=== PATIENT | male | born 1930 | race Two or more races ===

== ENCOUNTER 2016-11-01 09:34 | Inpatient (IN) | payer MEDICARE, MEDICAID ==
[~2016-11-01] VITALS: Ht 167.6 cm; Wt 72.6 kg
[~2016-11-01 09:34] MED LIST: ACET650T10 PO; ALLA266C2 TP; AMLO5TAB4 PO; BISA10SU61 RC; CALC-20 PO; CYAN100T3 PO; CYAN500T4 PO; DONE5TAB8 PO; FERR325T28 PO; LEVO125T PO; LEVO500T15 PO; LISI-607 PO; MAG30ORA PO; MAGN400O6 PO; MEMA5TAB PO; MULT1TAB11; OXCA150T5 PO; PANT40TA2 PO; SIMV20TA2 PO
--- NOTE | 2016-11-01 09:34 | NUR ---
RECIEVED PT TO ED BED 05, BIB RA 86 FROM HOME,FAMILY STS HE C/O CP BUT WAS PAIN FREE UPON EMS ARRIVAL. PT A/OX1-2, H/O DEMENTIA. VSS NAD RR EVEN AND UNLABORED. WILL CONT TO MONITOR
--- NOTE | 2016-11-01 10:30 | NUR ---
Patient is resting comfortably in bed with eyes closed. Easily aroused. VSS
[2016-11-01 10:33] LABS: BASOPHILS # (AUTO) 0.1 /CMM (0.0-0.2); BASOPHILS % (AUTO) 0.7 % (0.0-2.0); EOSINOPHILS # (AUTO) 0.3 /CMM (0.0-0.7); EOSINOPHILS % (AUTO) 3.9 % (0.0-6.0); HEMATOCRIT 35 % (39-51); HEMOGLOBIN 11.4 g/dL (13.5-17.5); LYMPHOCYTES % (AUTO) 13.4 % (20.0-44.0); MEAN CORPUSCULAR HEMOGLOBIN 28 PG (26.0-33.0); MEAN CORPUSCULAR HGB CONC 33 g/dl (31.0-36.0); MEAN CORPUSCULAR VOLUME 86 fL (80-96); MONOCYTES # (AUTO) 0.8 /CMM (0.1-1.30); MONOCYTES % (AUTO) 10.3 % (2.0-12.0); NEUTROPHILS # (AUTO) 5.5 /CMM (1.8-8.9); NEUTROPHILS % (AUTO) 71.7 % (43.0-81.0); PLATELET COUNT (AUTO) 250 /CMM (150-450); RDW COEFFICIENT OF VARIATION 14.3 (11.5-15.0); RED BLOOD CELL COUNT(AUTO) 4.05 MIL/uL (4.5-6.0); WHITE BLOOD COUNT (AUTO) 7.7 K/uL (4.3-11.0)
[2016-11-01 10:44] LABS: CALCIUM, SERUM 8.1 mg/dL (8.5-10.1); CREATININE 1.1 mg/dL (0.6-1.3)
[2016-11-01 10:51] LABS: INR 0.97 (0.87-1.13); PROTHROMBIN TIME 10.2 SECS (9.5-12.7)
[2016-11-01 10:53] LABS: TROPONIN I 0.047 ng/mL (0.00-0.056)
[2016-11-01] MEDS ORDERED: ASPIRIN 325 MG TABLET PO ONE (11:30)
[2016-11-01] MEDS ORDERED: LEVOFLOXACIN 750 MG /D5W 150ML PIGGYBACK IV ONE (11:30)
[2016-11-01] MEDS ORDERED: LEVOFLOXACIN 750 MG /D5W 150ML 150 ML IV ONE (11:37)
[2016-11-01] MEDS ORDERED: IV SET PRIMARY PUMP SET 1 EA INFUS.SET MC ONE ×2 (11:37→17:19)
[2016-11-01] MEDS ORDERED: ASPIRIN 325 MG TABLET ONE (11:37)
[2016-11-01] MEDS ORDERED: MEMA7CAP PO (11:54)
[2016-11-01] MEDS ORDERED: ASPI81TA2 PO (11:54)
[2016-11-01] MEDS ORDERED: CALC-20 PO (11:54)
--- NOTE | 2016-11-01 12:23 | NUR ---
CALLED '[facility] GROUP, DIFFERENTIAL TESTER
--- NOTE | 2016-11-01 12:40 | NUR ---
REPORT GIVEN TO SAPNA DOTSON FOR STEPHANIE TELE [phone]
--- NOTE | 2016-11-01 13:54 | NUR ---
DR.LEE JOHANSEN
--- NOTE | 2016-11-01 14:20 | NUR ---
CARTON STENCILER OPENING RECEIVED PT DENIES SOB, DIFFICULTY BREATHING OR PAIN. PT DAUGHTER AT BEDSIDE. PT A/OX1 CONFUSED AND FORGETFUL THIS IS HIS BASELINE PER DAUGHTER. PT ROOM AIR STABLE. TELE V PACING. PT STATES NO NEEDS SKIN CLEANSED BED BATH LINENS CHANGED, GOWN CHANGED AND PICTURES TAKEN OF SKIN. PT APPEARS STABLE AT THIS TIME. DNR POLST IN CHART.PT LEFT WITH CALL LIGHT IN REACH, BED LOWERED AND LOCKED, RAILS UPX3 FOR SAFETY WITH BED ALARM ON. MD SOMMER AWARE OF ADMISSION
[2016-11-01] MEDS ORDERED: hydrALAZINE HCL 25 MG TABLET PO PRN (15:00)
[2016-11-01] MEDS ORDERED: ALBUTEROL FS 2.5 MG/0.5 ML VIAL.NEB NEB PRN (15:00)
[2016-11-01] MEDS ORDERED: ENOXAPARIN SODIUM 30 MG/0.3 ML DISP.SYRIN SQ SCH (15:00)
[2016-11-01] MEDS ORDERED: IPRATROPIUM NEB FS 0.5 MG/2.5 ML AMPUL.NEB NEB PRN (15:00)
[2016-11-01] MEDS ORDERED: ONDANSETRON HCL/PF 4 MG/2 ML VIAL IV PRN (15:00)
--- NOTE | 2016-11-01 15:57 | NUR ---
MS RN NOTES TALKED TO DR SOMMER PER ORDER NS 75ML/HR X 1 LITER. AND RE ORDER URINALISIS
[2016-11-01] MEDS: ENOXAPARIN SODIUM 40 MG/0.4 ML DISP.SYRIN SQ SCH (16:00)
--- NOTE | 2016-11-01 16:00 | NUR ---
MS RN NOTES PT REFUSING VS AT THIS TIME WILL TRY AGAIN
[2016-11-01 16:05] VITALS: BP 141/83
--- NOTE | 2016-11-01 16:47 | NUR ---
MS RN NOTES PT REFUSING LOVENOX, HE WILL NOT ALLOW ME TO EVEN VISUALIZE HIS STOMACH. PT STILL REFUSING VS. ABLE TO GET SOME
[2016-11-01] MEDS: OXCARBAZEPINE 150 MG TABLET PO SCH (17:00)
[2016-11-01] MEDS ORDERED: ACETAMINOPHEN 325 MG TABLET PO PRN (17:00)
[2016-11-01] MEDS ORDERED: HOME MED MISCELLANEOUS XX SCH (17:00)
[2016-11-01] MEDS ORDERED: IV NS 0.9% 1,000 ML IV ONE (17:00)
[2016-11-01] MEDS ORDERED: MAG HYDROX/AL HYDROX/SIMETH 30 ML UDC PO PRN (17:00)
[2016-11-01] MEDS ORDERED: MAGNESIUM HYDROXIDE 30 ML UDC PO PRN (17:00)
[2016-11-01] MEDS ORDERED: BISACODYL SUPP (10 MG) 10 MG/SUPP.RECT SUPP.RECT RC PRN (17:00)
--- NOTE | 2016-11-01 17:27 | NUR ---
COMBER TENDER NOTES PT REFUSING ALL MEDICATIONS AND IVF. STARTED PULLING AT IVS AND BATTING AWAY RN AND TIRE BUILDER HEAVY SERVICE. PT REFUSING TO EAT WELL. PER DAUGHTER THIS IS NORMAL BEHAVIOR FOR PATIENT AND HE NEEDS TIME TO "COOL OFF".
--- NOTE | 2016-11-01 18:48 | NUR ---
FAX MACHINE REPAIRER NOTES PER DR ROS ALAS OK TO STRAIGHT CATH URINE. PT IS BEING NON COMPLIANT, REFUSING VS, MEDICATIONS, IVF, PULLED OUT IV. ATTEMPTS TO HAVE FREQUENT ROUNDS, CALMING PATIENT DOWN AND PT BECOMING COMBATIVE. MESSAGE LEFT TO BOILER HELPER DR PATTERSON FOR RESTRAINT ORDER UNTIL WE CAN GET SITTER
--- NOTE | 2016-11-01 19:30 | NUR ---
RN OPENING NOTES: RECEIVED REPORT FROM DANNYVAFELIPE RNMAURI. FOUND Pt AWAKE IN BED. Pt IS A/O1/2, CONFUSED. TRYING TO GET OUT OF BED. WAS TOLD BY MAURI THAT THE Pt GETS COMBATIVE AND WAS REFUSING PO MEDS AND VS. Pt PULLED OUT IV AND IS REFUSING A NEW IV INSERTION. MAURI CALLED DR. PATTERSON AND LEFT A MESSAGE TO GET AN ORDER FOR A RESTRAINT AND SITTER. WAITING FOR MD TO CALL BACK. Pt SHOWED NO S/S OF ACUTE DISTRESS OR SOB. NO SIGNS OF PAIN. SAFETY MEASURES IN PLACE. BED LOW, LOCKED, HOB ELEVATED, SIDE RAILS UP, CALL LIGHT AND BEDSIDE TABLE WITHIN REACH. WILL CONTINUE TO MONITOR Pt FOR SAFETY.
--- NOTE | 2016-11-01 19:38 | NUR ---
BASKET FILLER CLOSING PT STABLE AT THIS TIME. BED ALARM ON RAILS UPX3 AND FREQUENT ROUNDING AND SITTING BY STAFF TODAY. AWAITING MD CALL FOR RESTRAINTS ORDER UNTIL WE CAN GET SITTER FOR PATIENT AND TO NOTIFY OF PATIENT REFUSAL OF EVERYTHING. PT REFUSING IV ACCESS, IVF, PO MEDICATIONS AND VS. PT IS WITHOUT COMPLICATIONS AND FREE OF INJURY. PT REFUSED CATH FOR URINE SAMPLE. PT IS AGGITATED AND MESSAGE LEFT FOR MD IF CAN HAVE MEDICATION TO HELP CALM PATIENT DOWN TO ALLOW FOR MEDICAL CARE. PT CARE ENDORSED TO SAPNA CULVER. CALL LIGHT IN REACH, BED LOWERED AND LOCKED, RAILS UPX3 AND BED ALARM ON FOR SAFETY.
[2016-11-01 20:00] VITALS: BP 126/68
[2016-11-01] MEDS: DONEPEZIL 5 MG TABLET PO SCH (21:50)
[2016-11-01] MEDS: FERROUS SULFATE (325 MG) 325 MG/TAB TABLET PO SCH (21:50)
[2016-11-01] MEDS: LISINOPRIL (5MG) 5 MG TABLET PO SCH (21:51)
[2016-11-01] MEDS: SIMVASTATIN 20 MG TABLET PO SCH (21:55)
[2016-11-01 22:00] VITALS: BP 126/68
--- NOTE | 2016-11-01 22:00 | NUR ---
Pt REFUSING TO TAKE HIS 2199 PO MEDS. YELLS TO GET OUT OF THE ROOM AND TRIES TO HIT AND KICK WITH HIS LEGS.
[2016-11-02] VITALS: BP 110/52
--- NOTE | 2016-11-02 01:48 | NUR ---
NEW IV ACCESS ON RFA #22G. FLUSHES WELL. CONTINUING 1X ORDER OF NS @75ML/HR. INFLUENZA SWAB DONE TAKEN FROM RT NARE. CALLED LAB TO DESIGN AGENT.
[2016-11-02 06:35] LABS: BASOPHILS % (AUTO) 0.5 % (0.0-2.0); EOSINOPHILS # (AUTO) 0.4 /CMM (0.0-0.7); EOSINOPHILS % (AUTO) 7.2 % (0.0-6.0); HEMATOCRIT 33 % (39-51); HEMOGLOBIN 10.8 g/dL (13.5-17.5); LYMPHOCYTES % (AUTO) 17.3 % (20.0-44.0); MEAN CORPUSCULAR HEMOGLOBIN 28 PG (26.0-33.0); MEAN CORPUSCULAR HGB CONC 33 g/dl (31.0-36.0); MEAN CORPUSCULAR VOLUME 85 fL (80-96); MONOCYTES # (AUTO) 0.8 /CMM (0.1-1.30); MONOCYTES % (AUTO) 14.8 % (2.0-12.0); NEUTROPHILS # (AUTO) 3.4 /CMM (1.8-8.9); NEUTROPHILS % (AUTO) 60.2 % (43.0-81.0); PLATELET COUNT (AUTO) 264 /CMM (150-450); RDW COEFFICIENT OF VARIATION 15.3 (11.5-15.0); RED BLOOD CELL COUNT(AUTO) 3.88 MIL/uL (4.5-6.0); WHITE BLOOD COUNT (AUTO) 5.6 K/uL (4.3-11.0)
--- NOTE | 2016-11-02 06:45 | NUR ---
RN CLOSING NOTES: NO SIGNIFICANT CHANGES THROUGHOUT THE NIGHT. ALL SAFETY MEASURES IN PLACE. SITTER AT BEDSIDE. WILL ENDORSE TO SAPNA NERI FOR Pt'S STEPHANIE.
[2016-11-02 06:57] LABS: CALCIUM, SERUM 8.3 mg/dL (8.5-10.1); CREATININE 1.1 mg/dL (0.6-1.3); PHOSPHORUS 3.5 mg/dL (2.5-4.9); POTASSIUM 3.9 mmol/L (3.5-5.1)
--- NOTE | 2016-11-02 07:37 | NUR ---
ANALYTICAL CONSULTANT NOTES RECEIVED PATIENT IN BED, AWAKE AND ALERT, ORIENTED X 1, NO S/SX OF PAIN OR DISCOMFORT AT THIS TIME, BREATHING EVEN AND UNLABORED, NO APPARENT DISTRESS NOTED, SAFETY MEASURES IN PLACED, SITTER AT BEDSIDE, CALL LIGHT PLACED WITHIN REACH, WILL CONTINUE TO MONITOR.
[2016-11-02 08:00] VITALS: BP 140/59
[2016-11-02] MEDS: OXCARBAZEPINE 150 MG TABLET PO SCH ×3 (08:16→16:29)
[2016-11-02] MEDS: AMLODIPINE BESYLATE 5 MG TABLET PO SCH (08:16)
[2016-11-02] MEDS: LEVOTHYROXINE SODIUM 125 MCG TABLET PO SCH (08:16)
[2016-11-02] MEDS: MEMANTINE HCL 5 MG TABLET PO SCH (08:16)
[2016-11-02] MEDS: ASPIRIN 81 MG TAB.CHEW PO SCH (08:16)
[2016-11-02] MEDS: PANTOPRAZOLE 40 MG TABLET.DR PO SCH (08:16)
[2016-11-02] MEDS: CYANOCOBALAMIN 500 MCG TABLET PO SCH (08:16)
[2016-11-02 08:49] LABS: THYROID STIMULATING HORMONE 8.13 uIU/mL (0.358-3.74)
--- NOTE | 2016-11-02 09:10 | NUR ---
PATIENT RESIDES AT [facility] [phone]; CONFIRMED BED ON HOLD. PATIENT IS [place] CITIZ[place] SPEAKING, CONFUSED, NEEDS ASSISTANCE WITH ADLS. GREGORIO DAUGHERTY (DAUGHTER) [phone]. NEEDS TRANSPORTATION UPON D/C.
--- NOTE | 2016-11-02 10:00 | NUR ---
RN MS NOTES OBTAINED UA SAMPLE THROUGH STRAIGHT CATH, PATIENT AND DAUGHTER AT BEDSIDE INFORMED AND PROCEDURE EXPLAINED, STERILE TECHNIQUE OBSERVED, PROCEDURE TOLERATED WELL BY THE PATIENT, VITAL SIGNS STABLE, WILL CONTINUE TO MONITOR, PLACED A CALL TO LABORATORY FOR SPECIMEN GENERATION ENGINEERING TECHNOLOGIST.
[2016-11-02 11:27] LABS: APPEARANCE,URINE CLEAR (CLEAR); BILIRUBIN,URINE NEGATIVE (NEGATIVE); BLOOD, URINE 1+ Ery/uL (NEGATIVE); COLOR,URINE YELLOW (YELLOW); KETONES,URINE NEGATIVE (NEGATIVE); LEUKOCYTE ESTERASE ,URINE NEGATIVE (NEGATIVE); NITRITE, URINE NEGATIVE (NEGATIVE); PROTEIN,URINE NEGATIVE (NEGATIVE); UGLUCOSE NEGATIVE (NEGATIVE); UROBILINOGEN,URINE 0.2 EU/dL (0.2)
[2016-11-02 11:38] LABS: ADD URINE CULTURE NO; BACTERIA,URINE None seen /HPF (None Seen); WBC,URINE 0-2 /HPF (0-3)
[2016-11-02 11:39] LABS: SQUAMOUS EPITHELIAL CELL,UR Rare /HPF (None Seen)
[2016-11-02] MEDS ORDERED: SECONDARY IV SET 1 EA INFUS.SET MC ONE (12:15)
[2016-11-02] MEDS: LEVOFLOXACIN 250 MG /D5W 50 ML 250 MG in PREMIX 1 EA IV SCH (12:20)
[2016-11-02] MEDS ORDERED: LEVOFLOXACIN 500 MG /D5W 100ML 500 MG in PREMIX 1 EA IV SCH (15:00)
[2016-11-02 16:00] VITALS: BP 116/62
[2016-11-02] MEDS ORDERED: QUETIAPINE FUMARATE 25 MG TABLET PO PRN (17:00)
--- NOTE | 2016-11-02 19:24 | NUR ---
RN MS CLOSING NOTES PATIENT IN BED, ALERT AND ORIENTED X1, NO EPISODE OF AGITATION DURING THIS SHIFT, REMAINED CALM AND COOPERATIVE WITH CARE, NO S/SX OF PAIN OR DISCOMFORT NOTED, BREATHING EVEN AND UNLABORED, SAFETY MEASURES OBSERVED, SITTER AT BEDSIDE, ALL NEEDS ATTENDED AND MET, CALL LIGHT PLACED WITHIN REACH, VITAL SIGNS STABLE, WILL ENDORSE TO MOTORCYCLE ASSEMBLER FOR STEPHANIE.
[2016-11-02 20:00] VITALS: BP 128/74
[2016-11-02] MEDS: ENOXAPARIN SODIUM 40 MG/0.4 ML DISP.SYRIN SQ SCH (21:41)
[2016-11-02] MEDS: SIMVASTATIN 20 MG TABLET PO SCH (21:41)
[2016-11-02] MEDS: FERROUS SULFATE (325 MG) 325 MG/TAB TABLET PO SCH (21:41)
[2016-11-02] MEDS: DONEPEZIL 5 MG TABLET PO SCH (21:43)
[2016-11-02] MEDS: LISINOPRIL (5MG) 5 MG TABLET PO SCH (22:31)
--- NOTE | 2016-11-03 06:37 | NUR ---
MS RN NOTES AWAKE & RESPONSIVE. NOT IN ANY DISTRESS. NO SOB NOTED. DENIES ANY PAIN OR DISCOMFORT AT THIS TIME. WITH IV-HL PATENT & INTACT. AM CARE DONE. MONITORED ACCORDINGLY. WITH SITTER AT BEDSIDE. CALL LIGHT WITHIN REACH. BED IN LOWEST POSITION. SR UP X 2 FOR SAFETY. WILL ENDORSE TO NEXT SHIFT.
--- NOTE | 2016-11-03 07:05 | NUR ---
RN NOTE: RECEIVED PATIENT WHILE RESTING IN BED, A/OX 1-2. PATIENT BREATHING EVEN AND UNLABORED ON ROOM AIR. NO SOB, NO DISTRESS/DISCOMFORT. SITTER AT BEDSIDE. PATIENT COMFORTABLE, ALL NEEDS ATTENDED TO, SAFETY MEASURES IN PLACE, WILL CONTINUE TO MONITOR.
[2016-11-03] MEDS: LEVOTHYROXINE SODIUM 125 MCG TABLET PO SCH (08:12)
[2016-11-03] MEDS: OXCARBAZEPINE 150 MG TABLET PO SCH ×2 (08:12→12:23)
[2016-11-03] MEDS: PANTOPRAZOLE 40 MG TABLET.DR PO SCH (08:12)
[2016-11-03] MEDS: CYANOCOBALAMIN 500 MCG TABLET PO SCH (08:12)
[2016-11-03] MEDS: MEMANTINE HCL 5 MG TABLET PO SCH (08:12)
[2016-11-03] MEDS: ASPIRIN 81 MG TAB.CHEW PO SCH (08:12)
[2016-11-03] MEDS: AMLODIPINE BESYLATE 5 MG TABLET PO SCH (08:17)
[2016-11-03 08:57] VITALS: BP 125/63
--- NOTE | 2016-11-03 12:00 | NUR ---
MS RN NOTE: PATIENT REFUSED TRILEPTAL AT THIS TIME. MEDICATION WASTED. WILL CONTINUE TO MONITOR.
[2016-11-03] MEDS: LEVOFLOXACIN 250 MG /D5W 50 ML 250 MG in PREMIX 1 EA IV SCH (12:18)
--- NOTE | 2016-11-03 12:30 | NUR ---
MS RN NOTE: PHOTO'S TAKEN OF PATIENTS SKIN ISSUES AND PLACED IN CHART. PATIENT TO BE PREPARED FOR DISCHARGE. WILL CONTINUE TO MONITOR.
--- NOTE | 2016-11-03 15:30 | NUR ---
MS RN NOTE: PATIENT CLEARED FOR DISCHARGE PER DR. ROSAS. PATIENT REMAINS IN STABLE CONDITION, NO COMPLICATIONS NOTED. PATIENT BREATHING EVEN AND UNLABORED ON ROOM AIR. NO DISTRESS. PATIENTS EXIT CARE COMPLETED, ALL FORMS SIGNED, COPIES PLACED IN CHART. PATIENTS HAS NO BELONGINGS. PATIENT PROVIDED WITH DISCHARGE TEACHING REGARDING NEED TO FOLLOW UP WITH PRIMARY MD AND MEDICATION COMPLIANCE. PATIENT NEEDS REINFORCEMENT OF EDUCATION IS CONFUSED TIMES. REPORT GIVEN TO SAPNA FRAZIER AT [facility]. PATIENTS IV REMOVED, ID BAND REMOVED. ALL NEEDS MET, PATIENT DISCHARGE TO [facility] WITH EMT
== END 2016-11-03 15:15 | DRG 69 ==
LOC: ER 09:39 → TELE 13:33 → MED 11-03 13:27
PROVIDERS: ADMIT Internal Medicine; ATTEND Internal Medicine
DX: G45.9 Transient cerebral ischemic attack, unspecified (principal); G93.40 Encephalopathy, unspecified; J15.9 Unspecified bacterial pneumonia; F02.81 Dementia in other diseases classified elsewhere, unspecified severity, with behavioral disturbance; G30.9 Alzheimer's disease, unspecified; K21.9 Gastro-esophageal reflux disease without esophagitis; E03.9 Hypothyroidism, unspecified; E78.5 Hyperlipidemia, unspecified; I12.9 Hypertensive chronic kidney disease with stage 1 through stage 4 chronic kidney disease, or unspecified chronic kidney disease; M19.90 Unspecified osteoarthritis, unspecified site; R07.9 Chest pain, unspecified; F29 Unspecified psychosis not due to a substance or known physiological condition; Z95.0 Presence of cardiac pacemaker; F39 Unspecified mood [affective] disorder; N18.3 Chronic kidney disease, stage 3 (moderate); I48.91 Unspecified atrial fibrillation; Z66 Do not resuscitate; Z86.73 Personal history of transient ischemic attack (TIA), and cerebral infarction without residual deficits
CPT/HCPCS: 36415; 70450-TC; 71010-TC; 80048-TC; 80061-TC; 81000-TC; 82728-TC; 83540-TC; 83735-TC; 84100-TC; 84439-TC; 84443-TC; 84484-TC; 85025-TC; 85730-TC; 87081-TC; 87400; 93307-TC; 97001-TC; A4216; A4606; A6402; J1650; J1956; J7030; Z7610

== ENCOUNTER 2017-06-05 20:10 | Inpatient (IN) | payer MEDICARE, MEDICAID ==
[~2017-06-05] VITALS: Ht 160 cm; Wt 68.2 kg
[~2017-06-05 20:10] MED LIST changes: -ALLA266C2 TP; +ASPI81TA2 PO; -CALC-20 PO; -CYAN500T4 PO; -LEVO500T15 PO; -MEMA5TAB PO; +MEMA7CAP PO; -MULT1TAB11; -PANT40TA2 PO
--- NOTE | 2017-06-05 20:30 | NUR ---
TO BED 6 AN 86 YO MALE BB BLS AMBULANCE FROM [facility]. SENT BY DR. DOAN FOR POSSIBLE PNA. PATIENT IS ALERT, RESPONSIVE, VSS, NONDIAPHORETIC, AFEBRILE. COMFORT MEASURES RENDERED. AWAITING FOR ER MD ALBRECHT.
[2017-06-05] MEDS ORDERED: ALBU2.5V13 NEB (20:35)
[2017-06-05] MEDS ORDERED: PANT20TA2 PO (20:42)
[2017-06-05] MEDS ORDERED: IPRA0.2S49 NEB (20:42)
--- NOTE | 2017-06-05 20:50 | NUR ---
STARTED A SALINE LOCK ON THE RIGHT FOREARM G20, BLOOD DRAWN AND SENT TO LAB.
--- NOTE | 2017-06-05 20:55 | NUR ---
TECH AT BEDSIDE FO EKG.
--- NOTE | 2017-06-05 20:58 | NUR ---
DR MCCARTHY AT BEDSIDE TO EVAL.
[2017-06-05 21:01] LABS: BASOPHILS % (AUTO) 0.5 % (0.0-2.0); EOSINOPHILS % (AUTO) 2.8 % (0.0-6.0); HEMATOCRIT 33 % (39-51); HEMOGLOBIN 10.8 g/dL (13.5-17.5); LYMPHOCYTES % (AUTO) 17.6 % (20.0-44.0); MEAN CORPUSCULAR HEMOGLOBIN 28 PG (26.0-33.0); MEAN CORPUSCULAR HGB CONC 33 g/dl (31.0-36.0); MEAN CORPUSCULAR VOLUME 85 fL (80-96); MONOCYTES % (AUTO) 11.2 % (2.0-12.0); NEUTROPHILS % (AUTO) 67.9 % (43.0-81.0); PLATELET COUNT (AUTO) 305 /CMM (150-450); RDW COEFFICIENT OF VARIATION 13.6 (11.5-15.0); RED BLOOD CELL COUNT(AUTO) 3.83 MIL/uL (4.5-6.0); WHITE BLOOD COUNT (AUTO) 8.5 K/uL (4.3-11.0)
--- NOTE | 2017-06-05 21:01 | NUR ---
SPRING FLOOR SERVICE WORKER AT BEDSIDE FOR CXR.
[2017-06-05 21:02] LABS: EOSINOPHILS # (AUTO) 0.2 /CMM (0.0-0.7); LYMPHOCYTES # (AUTO) 1.5 /CMM (0.8-4.8); MONOCYTES # (AUTO) 0.9 /CMM (0.1-1.30); NEUTROPHILS # (AUTO) 5.9 /CMM (1.8-8.9)
[2017-06-05] MEDS ORDERED: LIDOCAINE 2% JEL UROJET 10 ML MM ONE ×2 (21:05→21:30)
[2017-06-05 21:06] LABS: CARBON DIOXIDE 28 mmol/L (21-32); CHLORIDE 101 mmol/L (98-107); CREATININE 1.1 mg/dL (0.6-1.3); GLUCOSE 117 mg/dL (74-106); POTASSIUM 4.4 mmol/L (3.5-5.1); SODIUM SERUM 134 mmol/L (136-145); UREA NITROGEN, BLOOD 17 mg/dL (7-18)
[2017-06-05 21:14] LABS: TROPONIN I 0.081 ng/mL (0.00-0.056)
--- NOTE | 2017-06-05 21:18 | NUR ---
PER DR FABIO MARIN TO DO STRAIGHT CATH FOR URINE COLLECTION PATIENT IS INCONTINENT, COLLECTED A 10CC YELLOW CLEAR URINE. CALLED LAB FOR GAS PUMP ATTENDANT.
--- NOTE | 2017-06-05 21:19 | NUR ---
FAMIY AT BEDSIDE.
[2017-06-05] MEDS ORDERED: CEFTRIAXONE 1GM BAG (ER ONLY) 50 ML IV ONE ×2 (21:30→21:37)
[2017-06-05] MEDS ORDERED: ASPIRIN 325 MG TABLET PO ONE (21:30)
[2017-06-05] MEDS ORDERED: LEVOFLOXACIN (500MG) 500 MG TABLET PO ONE (21:30)
[2017-06-05] MEDS ORDERED: ENOXAPARIN SODIUM 60 MG/0.6 ML DISP.SYRIN SQ ONE (21:30)
[2017-06-05] MEDS ORDERED: IV NS 0.9% 1,000 ML BAG IV ONE (21:30)
[2017-06-05] MEDS ORDERED: LEVOFLOXACIN (500MG) 500 MG TABLET ONE (21:37)
[2017-06-05] MEDS ORDERED: ASPIRIN 325 MG TABLET ONE (21:37)
[2017-06-05] MEDS ORDERED: ENOXAPARIN SODIUM 80 MG/0.8 ML DISP.SYRIN SQ ONE (21:37)
--- NOTE | 2017-06-05 21:43 | NUR ---
PATIENT WILL BE ADMITTED INTO ROOM 120.
--- NOTE | 2017-06-05 21:54 | NUR ---
medicated patient as ordered by Dr Kent.
[2017-06-05 22:00] VITALS: BP 113/52
[2017-06-05] MEDS ORDERED: VANCOMYCIN 1 GM in IV D5W 250 ML IV ONE (22:00)
[2017-06-05] MEDS ORDERED: AZTREONAM 1 G VIAL IM ONE (22:00)
--- NOTE | 2017-06-05 22:00 | NUR ---
SAPNA VALDEZ INITIAL NOTE PT RECEIVED IN NO ACUTE DISTRESS FROM ER (SAPNA LARIOS). PT IS WITH FAMILY (DAUGHTER). PT IS ON RA BUT SWITCHED TO 2LPM 02 VIA NC. ON TELE WITH V-PACED CONTROLLED 65. NO LINDA, NO GT, NO OSTOMY. RIGHT FA 20G WELL EXISTING LFA 22G THAT WILL BE D/C. COMFORT AND SAFETY MEASURES PLACED. WILL CONTINUE TO MONITOR. Addendum: 06/06/17 at 0115 by MONO JACKSON RN [id number]
--- NOTE | 2017-06-05 22:03 | NUR ---
nina'afshan saucedo per Dr Kent verbal order.
[2017-06-05] MEDS ORDERED: VANCOMYCIN 1 GM VIAL ONE (22:04)
[2017-06-05 22:18] LABS: APPEARANCE,URINE SLIGHTLY CLOUDY (CLEAR); COLOR,URINE YELLOW (YELLOW); PROTEIN,URINE NEGATIVE (NEGATIVE)
[2017-06-05 22:19] LABS: BILIRUBIN,URINE NEGATIVE (NEGATIVE); BLOOD, URINE 3+ Ery/uL (NEGATIVE); KETONES,URINE NEGATIVE (NEGATIVE); LEUKOCYTE ESTERASE ,URINE 1+ (NEGATIVE); NITRITE, URINE NEGATIVE (NEGATIVE); UGLUCOSE NEGATIVE (NEGATIVE); UROBILINOGEN,URINE 0.2 EU/dL (0.2)
--- NOTE | 2017-06-05 22:24 | NUR ---
Transferred to [facility] first floor 118-2 via als protocol, no incident noted. Endorsed to Kalia ALEJO at bedside.
[2017-06-05 22:30] VITALS: BP 113/52
[2017-06-05 22:31] LABS: BACTERIA,URINE None seen /HPF (None Seen); RBC,URINE 21-50 /HPF (0-2)
[2017-06-05 22:32] LABS: SQUAMOUS EPITHELIAL CELL,UR Few /HPF (None Seen)
[2017-06-06] VITALS: BP 129/81
[2017-06-06] MEDS ORDERED: AZTREONAM 1 G VIAL IM SCH
[2017-06-06] MEDS ORDERED: AZTREONAM 1 G VIAL ONE (00:10)
[2017-06-06] MEDS: AZTREONAM 1 G VIAL IV SCH ×2 (00:35→05:00)
[2017-06-06 04:00] VITALS: BP 104/38
[2017-06-06] MEDS ORDERED: AZTREONAM 1 G VIAL IV SCH ×2 (05:00)
--- NOTE | 2017-06-06 05:03 | NUR ---
RN NOTE WILL HOLD 0500 AZACTAM 1G IV. MEDICATION IS TO BE GIVEN Q8H AND LAST DOSE WAS GIVEN AT 0035. WILL ENDORSE TO AM SHIFT TO GIVE MEDICATION AT CORRECT TIME ACCORDING TO ORDER FREQUENCY.
--- NOTE | 2017-06-06 06:21 | NUR ---
CARDIOPULMONARY TECHNICIAN CLOSING NOTE PT REMAINS IN NO ACUTE DISTRESS. PT IS AWAKE BUT UNABLE TO MAKE NEEDS KNOWN. AT TIMES DURING THE SHIFT PT BECAME COMBATIVE. ALL DUE ORDERS CARRIED OUT EXCEPT FOR 0500 IV ATB DUE TO ORDER TIME FRAME NOT MATCHING UP WITH LAST ADMINISTERED MEDICATION. PT IS CLEAN AND COMFORTABLE WITH SAFETY MEASURES IN PLACE. WILL ENDORSE CARE AND F/U INFO TO AM NURSE. Addendum: 06/06/17 at 0636 by MONO JACKSON RN PT WAS PLACED ON 3LPM 02 VIA NC SINCE HE WAS DESATURATING. ON TELE WITH V-PACE 68. LEFT FA IV IS NOT PATENT BUT PT WILL NOT LET ME TAKE IT OUT.
[2017-06-06 07:17] LABS: BASOPHILS % (AUTO) 0.4 % (0.0-2.0); EOSINOPHILS # (AUTO) 0.4 /CMM (0.0-0.7); EOSINOPHILS % (AUTO) 5.5 % (0.0-6.0); HEMATOCRIT 31 % (39-51); HEMOGLOBIN 10.4 g/dL (13.5-17.5); LYMPHOCYTES # (AUTO) 1.4 /CMM (0.8-4.8); LYMPHOCYTES % (AUTO) 20.5 % (20.0-44.0); MEAN CORPUSCULAR HEMOGLOBIN 29 PG (26.0-33.0); MEAN CORPUSCULAR HGB CONC 33 g/dl (31.0-36.0); MEAN CORPUSCULAR VOLUME 86 fL (80-96); MONOCYTES # (AUTO) 0.9 /CMM (0.1-1.30); MONOCYTES % (AUTO) 12.4 % (2.0-12.0); NEUTROPHILS # (AUTO) 4.3 /CMM (1.8-8.9); NEUTROPHILS % (AUTO) 61.2 % (43.0-81.0); PLATELET COUNT (AUTO) 247 /CMM (150-450); RDW COEFFICIENT OF VARIATION 14.6 (11.5-15.0); RED BLOOD CELL COUNT(AUTO) 3.66 MIL/uL (4.5-6.0)
[2017-06-06 07:34] LABS: CARBON DIOXIDE 27 mmol/L (21-32); CHLORIDE 103 mmol/L (98-107); GLUCOSE 83 mg/dL (74-106); POTASSIUM 4.3 mmol/L (3.5-5.1); SODIUM SERUM 137 mmol/L (136-145); UREA NITROGEN, BLOOD 15 mg/dL (7-18)
[2017-06-06 07:48] LABS: CHOLESTEROL 194 mg/dL (<200); HDL CHOLESTEROL 43 mg/dL (40-60); LDL 144 mg/dL (0-99); THYROID STIMULATING HORMONE 1.911 uIU/mL (0.358-3.74); TRIGLYCERIDES 65 mg/dL (30-150)
--- NOTE | 2017-06-06 07:58 | NUR ---
COLORING CHECKER INITIAL NOTE PT IN BED ALERT AND ORIENTED x1-2, EGYPTIAN SPEAKING, ATTEMPTING TO MAKE NEEDS KNOWN . IV FLUIDS STOPPED , PATIENT RECEIVING TKO FLUIDS . PATIENT HAS LEFT AC NON WORKING REFUSING FOR RN TO REMOVE , PATIENT ALSO HAS RIGHT AC WORKING. PT IN NO ACUTE DISTRESS. P PT IS CLEAN AND COMFORTABLE WITH SAFETY MEASURES IN PLACE. CALL LIGHT WITH IN REACH WILL CONTINUE TO FOLLOW THROUGHOUT THE DAY.
[2017-06-06 08:00] VITALS: BP 125/56
[2017-06-06] MEDS ORDERED: FEE PK DOSING 1 MIN EA MC ONE (08:39)
[2017-06-06] MEDS ORDERED: BISACODYL SUPP (10 MG) 10 MG/SUPP.RECT SUPP.RECT RC PRN (09:00)
[2017-06-06] MEDS ORDERED: ACETAMINOPHEN 325 MG TABLET PO PRN (09:00)
[2017-06-06] MEDS ORDERED: MAG HYDROX/AL HYDROX/SIMETH 30 ML UDC PO PRN (09:00)
[2017-06-06] MEDS ORDERED: ALBUTEROL FS 2.5 MG/0.5 ML VIAL.NEB NEB PRN (09:00)
[2017-06-06] MEDS ORDERED: HOME MED MISCELLANEOUS XX SCH (09:00)
[2017-06-06] MEDS ORDERED: MAGNESIUM HYDROXIDE 30 ML UDC PO PRN (09:00)
[2017-06-06] MEDS ORDERED: CYANOCOBALAMIN 100 MCG TABLET PO SCH (09:00)
[2017-06-06] MEDS ORDERED: IPRATROPIUM NEB FS 0.5 MG/2.5 ML AMPUL.NEB NEB PRN (09:00)
[2017-06-06] MEDS: AZTREONAM 1 G in IV NS 0.9% 100 ML IV SCH ×2 (09:08→16:52)
[2017-06-06] MEDS: AMLODIPINE BESYLATE 5 MG TABLET PO SCH (09:09)
[2017-06-06] MEDS: ASPIRIN 81 MG TAB.CHEW PO SCH (09:09)
[2017-06-06] MEDS: FERROUS SULFATE (325 MG) 325 MG/TAB TABLET PO SCH (09:09)
[2017-06-06] MEDS: OXCARBAZEPINE 150 MG TABLET PO SCH ×3 (09:09→16:52)
[2017-06-06] MEDS: LEVOTHYROXINE SODIUM 125 MCG TABLET PO SCH (09:12)
[2017-06-06] MEDS: PANTOPRAZOLE 40 MG TABLET.DR PO SCH ×2 (09:12→09:23)
--- NOTE | 2017-06-06 09:29 | NUR ---
RN NOTE PATIENT IS EXTREMELY CONFUSED UNABLE TO STATE NAME AND AGE WHEN ASKED , UPON TRYING TO ASSESS THE PATIENT IN DETAIL THE PATIENT REFUSED AND BEGAN TO BULL TELL BOX OFF WELL NASAL CANULA . RN ASKED ROMANSH SPEAKING RN TO TRANSLATE MEDICATION -
[2017-06-06 10:16] LABS: TROPONIN I 0.092 ng/mL (0.00-0.056)
[2017-06-06 10:26] LABS: PHOSPHORUS 3.6 mg/dL (2.5-4.9)
[2017-06-06 10:27] LABS: MAGNESIUM 1.8 mg/dL (1.8-2.4)
[2017-06-06] MEDS: VANCOMYCIN 0.75 GM in IV D5W 250 ML IV SCH ×2 (11:52→22:14)
--- NOTE | 2017-06-06 12:44 | NUR ---
WOUND CARE CONSULT: PT PRESENTS WITH VERY RED AREA TO PENIS. RECOMMENDATIONS MADE AND DISCUSSED WITH NURSING STAFF. PT IS INCONTINENT. MACO SCORE IS 12. ISOFLEX LOW AIRLOSS BED TO BE PLACED WHEN AVAILABLE. PT TO BE TURNED AND REPOSITIONED EVERY 2 HRS PT CONDITION PERMITS, HEELS FLOATED. ALL SKIN PROTECTION MEASURES IN PLACE. WILL SEE PRN. TRONCOSO IN AGREEMENT WITH PLAN OF CARE. Addendum: 06/06/17 at 1246 by AGGIE CROWELL WNDNU Amended: Links added.
[2017-06-06] MEDS: CLOTRIMAZOLE 1% 15 GM TUBE TP SCH ×2 (13:00→16:53)
[2017-06-06] MEDS ORDERED: Z GUARD REMEDY 2 OZ OINT TP PRN (13:00)
[2017-06-06] MEDS: Z GUARD REMEDY 2 OZ OINT TP SCH (13:00)
[2017-06-06] MEDS: MEMANTINE HCL 5 MG TABLET PO SCH (15:00)
--- NOTE | 2017-06-06 15:54 | NUR ---
RN NOTE PATIENT REFUSED MEDS AND WILLIAM CARE X 2 ATTEMPTS TO APPLY MEDICATION LATIEN ON PENIS. AND ALSO Z- GUARD TO REDDENED AREAS. PATIENT HAS ALSO REFUSED PM MEDICATION RN WILL CONTINUE TO ATTEMPT ADMINISTRATION FOR THE REMINDER OF THE SHIFT
[2017-06-06 16:00] VITALS: BP 131/59
--- NOTE | 2017-06-06 19:04 | NUR ---
RN CLOSING NOTE PATIENT IS FREE OF INJURY , SAFETY MEASURES IN PLACE, PATIENT KEEP CLEAN AND DRY REORIENTED AND REPOSITIONED PER PROTOCOL , PATIENT VITALS ASSESSED. PATIENT HAS NO COMPLAINTS AT THIS TIME NEEDS ATTENDED, CALL LIGHT WITHIN REACH, FLUID HYDRATION MONITORED AND WNL NO SOB NOTED NO DISCOMFORT. RN WILL CONTINUE TO FOLLOW WOUND TREATMENT ORDERS FOLLOWED WILL ENDORSE CONTINUED CARE TO PM RN
[2017-06-06 19:45] VITALS: BP 131/59
--- NOTE | 2017-06-06 20:00 | NUR ---
MS1/RN RECEIVE PATIENT AWAKE, ALERT, NOT ANSWERING TO MY QUESTIONS, APPEAR COMFORTABLE, NO S/S OF PAIN, NO DISTRESS NOTED, CALL LIGHT IN REACH. FALL PRECAUTION. WILL MONITOR.
[2017-06-06] MEDS: DONEPEZIL 5 MG TABLET PO SCH (22:14)
[2017-06-06] MEDS: SIMVASTATIN 20 MG TABLET PO SCH (22:14)
[2017-06-06] MEDS: LISINOPRIL (5MG) 5 MG TABLET PO SCH (22:15)
--- NOTE | 2017-06-06 23:02 | NUR ---
MS1/RN PATIENT APPEAR SLEEPING, AROUSABLE, NO CHANGE IN CONDITION. ENDORSED TO NEXT RN FOR CONTINUITY OF CARE.
--- NOTE | 2017-06-06 23:35 | NUR ---
RN OPEN NOTES RECEIVED PATIENT RESTING IN BED, EASILY AROUSABLE TO NAME. A/O X1. NO SIGNS OF DISTRESS OR DISCOMFORT. BREATHING EVEN AND UNLABORED. IV ACCESS IN RFA PATENT AND INTACT, NO SIGNS OF REDNESS OR INFILTRATION. BED IN LOW LOCKED POSITION WITH SIDE RAILS X2. CALL LIGHT WITHIN REACH. WILL CONTINUE TO MONITOR.
[2017-06-07] MEDS: AZTREONAM 1 G in IV NS 0.9% 100 ML IV SCH ×3 (00:05→17:40)
[2017-06-07 04:00] VITALS: BP 121/53
--- NOTE | 2017-06-07 06:54 | NUR ---
RN CLOSING NOTES PATIENT RESTING IN BED, EASILY AROUSABLE TO NAME. A/O X1. NO SIGNS OF DISTRESS OR DISCOMFORT. BREATHING EVEN AND UNLABORED. IV ACCESS IN RFA PATENT AND INTACT, NO SIGNS OF REDNESS OR INFILTRATION. ALL NEEDS MET. NO SIGNIFICANT CHANGES THROUGH THE NIGHT. REPOSITIONED Q2H. BED IN LOW LOCKED POSITION WITH SIDE RAILS X2. CALL LIGHT WITHIN REACH. WILL ENDORSE TO AM SHIFT FOR STEPHANIE.
[2017-06-07 07:07] LABS: BASOPHILS % (AUTO) 0.4 % (0.0-2.0); EOSINOPHILS # (AUTO) 0.4 /CMM (0.0-0.7); EOSINOPHILS % (AUTO) 4.8 % (0.0-6.0); HEMATOCRIT 33 % (39-51); HEMOGLOBIN 10.9 g/dL (13.5-17.5); LYMPHOCYTES # (AUTO) 1.2 /CMM (0.8-4.8); LYMPHOCYTES % (AUTO) 15.6 % (20.0-44.0); MEAN CORPUSCULAR HEMOGLOBIN 28 PG (26.0-33.0); MEAN CORPUSCULAR HGB CONC 33 g/dl (31.0-36.0); MEAN CORPUSCULAR VOLUME 86 fL (80-96); MONOCYTES % (AUTO) 12.3 % (2.0-12.0); NEUTROPHILS # (AUTO) 5.3 /CMM (1.8-8.9); NEUTROPHILS % (AUTO) 66.9 % (43.0-81.0); PLATELET COUNT (AUTO) 271 /CMM (150-450); RDW COEFFICIENT OF VARIATION 14.6 (11.5-15.0); RED BLOOD CELL COUNT(AUTO) 3.86 MIL/uL (4.5-6.0); WHITE BLOOD COUNT (AUTO) 7.9 K/uL (4.3-11.0)
[2017-06-07 07:11] VITALS: BP 121/53
--- NOTE | 2017-06-07 07:15 | NUR ---
RN INITIAL NOTE PATIENT RECEIVED IN BED, RESTING COMFORTABLY. ALERT, CONFUSED. MUMBLES WORDS, PRIMARILY DIVEHI SPEAKING. NO S/S OF PAIN OR DISCOMFORT. DENIES PAIN AT THIS TIME. RESPIRATIONS ARE EVEN AND UNLABORED. NO S/S OF RESPIRATORY DISTRESS OR SOB. SATING WELL ON ROOM AIR. IV SITE FLUSHED, PATENT. SKIN IS WARM AND DRY TO TOUCH. SAFETY PRECAUTIONS IMPLEMENTED. BED IN LOCKED, LOW POSITION WITH TWO SIDE RAILS UP. CALL LIGHT AND BELONGINGS WITHIN EASY REACH. WILL MONITOR CLOSELY.
[2017-06-07 07:24] VITALS: BP 121/53
--- NOTE | 2017-06-07 07:30 | NUR ---
RN NOTES RECEIVED PATIENT IN BED ALERT, AWAKE, ORIENTED X2 WITH BREATHING NORMAL, EVEN AND UNLABORED. NO SOB NOTED. ON ROOM AIR, SATURATING WELL. NO ACUTE DISTRESS NOTED. RFA 20G IS PATENT AND INTACT, NO INFILTRATION NOTED. KEPT CLEAN, DRY AND COMFORTABLE. ALL NEEDS ATTENDED. SAFETY MEASURE OBSERVED. CALL LIGHT WITH IN REACH. WILL CONT TO MONITOR.
[2017-06-07 07:39] LABS: CALCIUM, SERUM 8.2 mg/dL (8.5-10.1); CARBON DIOXIDE 25 mmol/L (21-32); CHLORIDE 102 mmol/L (98-107); GLUCOSE 83 mg/dL (74-106); MAGNESIUM 1.9 mg/dL (1.8-2.4); PHOSPHORUS 3.9 mg/dL (2.5-4.9); SODIUM SERUM 137 mmol/L (136-145); UREA NITROGEN, BLOOD 13 mg/dL (7-18)
[2017-06-07 07:57] LABS: ALANINE AMINOTRANSFERASE 18 U/L (12-78); ALBUMIN 2.9 g/dL (3.4-5.0); ALKALINE PHOSPHATASE 97 U/L (46-116); ASPARTATE AMINOTRANSFERASE 17 U/L (15-37); BILIRUBIN,TOTAL 0.2 mg/dL (0.2-1.0); TOTAL PROTEIN, SERUM 6.9 g/dL (6.4-8.2)
[2017-06-07 08:00] VITALS: BP 135/48
[2017-06-07] MEDS: ASPIRIN 81 MG TAB.CHEW PO SCH (08:27)
[2017-06-07] MEDS: MEMANTINE HCL 5 MG TABLET PO SCH (08:28)
[2017-06-07] MEDS: LEVOTHYROXINE SODIUM 125 MCG TABLET PO SCH (08:28)
[2017-06-07] MEDS: OXCARBAZEPINE 150 MG TABLET PO SCH ×3 (08:28→17:36)
[2017-06-07] MEDS: FERROUS SULFATE (325 MG) 325 MG/TAB TABLET PO SCH (08:28)
[2017-06-07] MEDS: Z GUARD REMEDY 2 OZ OINT TP SCH (08:29)
[2017-06-07] MEDS: AMLODIPINE BESYLATE 5 MG TABLET PO SCH (08:29)
[2017-06-07] MEDS: CLOTRIMAZOLE 1% 15 GM TUBE TP SCH ×3 (08:30→17:37)
[2017-06-07 08:56] LABS: FERRITIN 87 ng/mL (8-388)
[2017-06-07] MEDS: VANCOMYCIN 0.75 GM in IV D5W 250 ML IV SCH ×2 (10:07→22:27)
[2017-06-07] MEDS: CYANOCOBALAMIN 500 MCG TABLET PO SCH (10:07)
--- NOTE | 2017-06-07 19:10 | NUR ---
RN MS OPENING NOTES RECEIVED REPORT FROM AM RN. PATIENT A/A/O X1-2 W/ SOME CONFUSION. BREATHING EVEN AND UNLABORED, NO RESPIRATORY DISTRESS NOTED, ON ROOM AIR. PULSES PRESENT. SKIN WARM TO TOUCH. RIGHT FOREARM IV #20 CDI, SALINE LOCK. DENIES ANY PAIN OR DISCOMFORT. SAFETY MEASURES IN PLACE W/ SIDE RAILS UP, BED LOCKED AND IN LOWEST POSITION, BED ALARM ON, AND CALL LIGHT WITHIN REACH. WILL CONTINUE TO MONITOR.
--- NOTE | 2017-06-07 19:15 | NUR ---
RN NOTES PATIENT ENDORSED TO NEXT SHIFT IN STABLE CONDITION FOR CONTINUITY OF CARE.
[2017-06-07 20:00] VITALS: BP 115/50
[2017-06-07 20:02] VITALS: BP 115/50
[2017-06-07] MEDS: LISINOPRIL (5MG) 5 MG TABLET PO SCH (22:27)
[2017-06-07] MEDS: SIMVASTATIN 20 MG TABLET PO SCH (22:27)
[2017-06-07] MEDS: DONEPEZIL 5 MG TABLET PO SCH (22:28)
[2017-06-08] MEDS: AZTREONAM 1 G in IV NS 0.9% 100 ML IV SCH ×2 (01:33→08:51)
[2017-06-08 04:00] VITALS: BP 125/55
[2017-06-08 04:03] VITALS: BP 125/55
[2017-06-08 06:32] LABS: CALCIUM, SERUM 8.4 mg/dL (8.5-10.1); CARBON DIOXIDE 28 mmol/L (21-32); CHLORIDE 101 mmol/L (98-107); GLUCOSE 86 mg/dL (74-106); POTASSIUM 4.3 mmol/L (3.5-5.1); SODIUM SERUM 135 mmol/L (136-145); UREA NITROGEN, BLOOD 17 mg/dL (7-18)
--- NOTE | 2017-06-08 07:10 | NUR ---
RN MS OPENING NOTES RECEIVED PT RESTING COMFORTABLY IN BED. A&OX1. ON RA, RESPIRATIONS EVEN AND UNLABORED WITH NO SOB NOTED. SKIN WARM TO TOUCH. RIGHT FOREARM IV #20 CDI, SALINE LOCK. BED LOW, LOCKED WITH CALL LIGHT WITHIN REACH. WILL CONT TO MONITOR.
--- NOTE | 2017-06-08 07:11 | NUR ---
RN MS CLOSING NOTES PATIENT SLEEPING IN BED. NO ACUTE RESPIRATORY DISTRESS THROUGHOUT SHIFT, REMAINED ON ROOM AIR. NO SIGNIFICANT CHANGES DURING SHIFT. ALL DUE MEDS GIVEN AND TOLERATED. SAFETY MEASURES IN PLACE. WILL ENDORSE STEPHANIE TO AM RN.
[2017-06-08 08:00] VITALS: BP_SYST 125; BP_SYST 127; BP_DIAS 50
[2017-06-08] MEDS: CYANOCOBALAMIN 500 MCG TABLET PO SCH (08:51)
[2017-06-08] MEDS: LEVOTHYROXINE SODIUM 125 MCG TABLET PO SCH (08:51)
[2017-06-08] MEDS: AMLODIPINE BESYLATE 5 MG TABLET PO SCH (08:52)
[2017-06-08] MEDS: PANTOPRAZOLE 40 MG TABLET.DR PO SCH (08:52)
[2017-06-08] MEDS: OXCARBAZEPINE 150 MG TABLET PO SCH ×2 (08:52→12:00)
[2017-06-08] MEDS: FERROUS SULFATE (325 MG) 325 MG/TAB TABLET PO SCH (08:52)
[2017-06-08] MEDS: MEMANTINE HCL 5 MG TABLET PO SCH (08:52)
[2017-06-08] MEDS: ASPIRIN 81 MG TAB.CHEW PO SCH (08:52)
[2017-06-08] MEDS: Z GUARD REMEDY 2 OZ OINT TP SCH (11:31)
[2017-06-08] MEDS: CLOTRIMAZOLE 1% 15 GM TUBE TP SCH ×2 (11:32→12:00)
[2017-06-08] MEDS ORDERED: AZTR1FRO IV (12:58)
[2017-06-08] MEDS ORDERED: VANC750P4 IV (12:58)
[2017-06-08 16:00] VITALS: BP 98/48
[2017-06-08] MEDS ORDERED: VANCOMYCIN 0.75 GM in IV D5W 250 ML IV SCH (16:00)
[2017-06-08] MEDS ORDERED: VANCOMYCIN 1 GM in IV D5W 250 ML IV SCH (16:00)
--- NOTE | 2017-06-08 17:30 | NUR ---
MS RN NOTE: PATIENT D/C TO [facility]. REPORT GIVEN TO INTAKE NURSE CHARLIE. PATIENT LEFT IN STABLE CONDITION. A&OX1, VS: 99.0 TEMP, 60 HR, 17 RR, 97% O2 SAT, 108/47 BP, DENIED PAIN. REFUSED PICTURE. UNABLE TO SIGN D/C FORMS DUE TO CONFUSION. ORDERS CARRIED OUT. D/C PACKAGE GIVEN TO EMT FOR TRANSPORTATION. PATIENT LEFT VIA GURNEY WITH 2 EMT AT 1700
== END 2017-06-08 17:30 | DRG 280 ==
LOC: ER 20:11 → TELE1 21:50 → MEDSG1 06-06 09:47
PROVIDERS: ADMIT Internal Medicine; ATTEND Internal Medicine
DX: I21.4 Non-ST elevation (NSTEMI) myocardial infarction (principal); G92 Toxic encephalopathy; J18.9 Pneumonia, unspecified organism; N39.0 Urinary tract infection, site not specified; G30.9 Alzheimer's disease, unspecified; D50.0 Iron deficiency anemia secondary to blood loss (chronic); I50.30 Unspecified diastolic (congestive) heart failure; F02.80 Dementia in other diseases classified elsewhere, unspecified severity, without behavioral disturbance, psychotic disturbance, mood disturbance, and anxiety; J98.11 Atelectasis; Z88.0 Allergy status to penicillin; Z88.8 Allergy status to other drugs, medicaments and biological substances; Z86.73 Personal history of transient ischemic attack (TIA), and cerebral infarction without residual deficits; Z79.899 Other long term (current) drug therapy; Z79.82 Long term (current) use of aspirin; K21.9 Gastro-esophageal reflux disease without esophagitis; I25.10 Atherosclerotic heart disease of native coronary artery without angina pectoris; E78.5 Hyperlipidemia, unspecified; E66.01 Morbid (severe) obesity due to excess calories; E03.9 Hypothyroidism, unspecified; D64.9 Anemia, unspecified; M19.90 Unspecified osteoarthritis, unspecified site; F29 Unspecified psychosis not due to a substance or known physiological condition; Z95.0 Presence of cardiac pacemaker
CPT/HCPCS: 36415; 71010-TC; 80048-TC; 80053-TC; 80061-TC; 80202-TC; 81000-TC; 82728-TC; 83540-TC; 83605-TC; 83735-TC; 84100-TC; 84443-TC; 84484-TC; 85025-TC; 87040-TC; 87081-TC; 87086-TC; A4349; A4606; J0696; J1650; J3370; J3490; J7030; J7050; J7060; Z7610

== ENCOUNTER 2018-01-31 16:49 | Inpatient (IN) | payer MEDICARE, MEDICAID ==
[2018-01-31] VITALS: BP 125/67
[~2018-01-31] VITALS: Ht 172.7 cm; Wt 67.6 kg
[~2018-01-31 16:49] MED LIST changes: +ALBU2.5V13 NEB; +ASPI-1169 PO; -ASPI81TA2 PO; +AZTR1FRO IV; +IPRA0.2S49 NEB; +PANT20TA2 PO; +VANC750P7 IV
--- NOTE | 2018-01-31 17:00 | NUR ---
[id number] FROM [facility]: COUGH, FEVER, MORE ALTERED. RR IS EVEN AND SLIGHTLY LABORED. SKIN IS HOT TO TOUCH. PLACED ON THE MONITOR. WILL CONTINUOUSLY MONITOR THE PATIENT. AWAITING MD FOR EVAL.
[2018-01-31 17:39] LABS: BASOPHILS % (AUTO) 0.1 % (0.0-2.0); EOSINOPHILS % (AUTO) 0.9 % (0.0-6.0); HEMATOCRIT 35 % (39-51); HEMOGLOBIN 11.7 g/dL (13.5-17.5); LYMPHOCYTES # (AUTO) 0.8 /CMM (0.8-4.8); LYMPHOCYTES % (AUTO) 4.1 % (20.0-44.0); MEAN CORPUSCULAR HGB CONC 33 g/dl (31.0-36.0); MEAN CORPUSCULAR VOLUME 85 fL (80-96); MONOCYTES # (AUTO) 1.2 /CMM (0.1-1.30); MONOCYTES % (AUTO) 6.6 % (2.0-12.0); NEUTROPHILS # (AUTO) 16.2 /CMM (1.8-8.9); NEUTROPHILS % (AUTO) 88.3 % (43.0-81.0); PLATELET COUNT (AUTO) 341 /CMM (150-450); RDW COEFFICIENT OF VARIATION 14.4 (11.5-15.0); WHITE BLOOD COUNT (AUTO) 18.4 K/uL (4.3-11.0)
[2018-01-31 17:42] LABS: ABG BASE EXCESS -0.1 mmol/L; ABG OXYGEN SATURATION 94.7 % (92.0-98.5); ABG PCO2 35.8 mmHg (35.0-45.0); ABG PH 7.439 (7.350-7.450); ABG PO2 72.3 mmHg (75.0-100.0); AaDO2 142.9 mmHg; COHb 0.7 % (0.5-1.5); MetHb 0.3 % (0.0-1.5); O2Hb 93.8 % (94.0-97.0); SITE, ABG Left Radial; VENT MODE, BG 4LNC
[2018-01-31 17:51] LABS: CALCIUM, SERUM 8.8 mg/dL (8.5-10.1); CARBON DIOXIDE 27 mmol/L (21-32); CHLORIDE 104 mmol/L (98-107); CREATININE 1.2 mg/dL (0.6-1.3); GLUCOSE 128 mg/dL (74-106); SODIUM SERUM 138 mmol/L (136-145); UREA NITROGEN, BLOOD 19 mg/dL (7-18)
[2018-01-31 17:57] LABS: ALANINE AMINOTRANSFERASE 26 U/L (12-78); ALBUMIN 3.3 g/dL (3.4-5.0); ALKALINE PHOSPHATASE 97 U/L (46-116); ASPARTATE AMINOTRANSFERASE 24 U/L (15-37); BILIRUBIN,DIRECT 0.1 mg/dL (0.0-0.2); BILIRUBIN,TOTAL 0.3 mg/dL (0.2-1.0); TOTAL PROTEIN, SERUM 8.2 g/dL (6.4-8.2)
[2018-01-31 17:58] LABS: TROPONIN I 0.062 ng/mL (0.00-0.056)
[2018-01-31 18:00] LABS: INR 0.93 (0.85-1.15)
[2018-01-31] MEDS ORDERED: ACETAMINOPHEN 650 MG/SUPP.RECT RC ONE (18:00)
--- NOTE | 2018-01-31 18:37 | NUR ---
CALLED NURSING SUP. FOR TELE BED
[2018-01-31] MEDS ORDERED: ASPIRIN 325 MG TABLET ONE (18:47)
[2018-01-31 18:50] LABS: APPEARANCE,URINE SL CLOUDY (CLEAR); BILIRUBIN,URINE NEGATIVE (NEGATIVE); BLOOD, URINE 3+ Ery/uL (NEGATIVE); COLOR,URINE YELLOW (YELLOW); KETONES,URINE TRACE (NEGATIVE); LEUKOCYTE ESTERASE ,URINE TRACE (NEGATIVE); NITRITE, URINE NEGATIVE (NEGATIVE); PH,URINE 5.5 (5.0-8.0); PROTEIN,URINE TRACE mg/dl (NEGATIVE); UGLUCOSE NEGATIVE (NEGATIVE); UROBILINOGEN,URINE 0.2 EU/dL (0.2)
[2018-01-31] MEDS ORDERED: IPRA0.2S9 IH (18:58)
[2018-01-31] MEDS ORDERED: DOCU100C36 PO (18:58)
[2018-01-31] MEDS ORDERED: VANCOMYCIN 1 GM in IV D5W 250 ML IV ONE (19:00)
[2018-01-31] MEDS ORDERED: MEROPENEM 500 MG in IV NS 0.9% 50 ML IV ONE (19:00)
[2018-01-31] MEDS ORDERED: ASPIRIN 325 MG TABLET PO ONE (19:00)
[2018-01-31 19:09] LABS: BACTERIA,URINE 2+ /HPF (None Seen); RBC,URINE 21-50 /HPF (0-2); SQUAMOUS EPITHELIAL CELL,UR None Seen /HPF (None Seen)
--- NOTE | 2018-01-31 19:10 | NUR ---
rEPORT GIVEN TO SAPNA VILLAREAL FOR STEPHANIE.
[2018-01-31 19:13] LABS: BAND % (MANUAL) 4 % (0.0-5.0); LYMPHOCYTES % (MANUAL) 2 % (16-48); MONOCYTES % (MANUAL) 6 % (0-11.0); NEUTROPHILS % (MANUAL) 88 (42-76)
[2018-01-31 20:00] VITALS: BP_SYST 121; BP_SYST 127; BP_DIAS 63; BP_DIAS 68
--- NOTE | 2018-01-31 20:04 | NUR ---
REPORT GIVEN TO EDDIE IN [place]
[2018-01-31 20:10] VITALS: BP 127/63
--- NOTE | 2018-01-31 20:10 | NUR ---
TELE-1/ALARM ADJUSTER RECEIVED PT ACCOMPANIED BY ER STAFF. PT TRANSFERRED TO BED 118-1. ADMISSION ASSESSMENT DONE. SKIN ASSESSMENT DONE PICTURES TAKEN AND PLACED IN CHART. VSS. PT AND FAMILY UPDATED ON PLAN OF CARE. IV LINES FLUSHED. PT AND FAMILY EDUCATED PRESSURIZER LIGHT AND ROOM ORIENTATION. BED IN LOWEST LOCKED POSITION. SIDE RAILS UP x3. CALL LIGHT IN REACH. WILL CONTINUE TO MONITOR CLOSELY.
--- NOTE | 2018-01-31 21:00 | NUR ---
TELE-1/EXPLOSIVE OPERATOR BOMB DR. CASTAÑEDA CALLED ADMITTING ORDERS RECEIVED. WILL CONTINUE TO MONITOR CLOSELY.
[2018-01-31] MEDS: LEVOFLOXACIN 500 MG /D5W 100ML 500 MG in PREMIX 1 EA IV SCH (21:55)
[2018-02-01] VITALS: BP 125/67
[2018-02-01 04:00] VITALS: BP 131/78
[2018-02-01] MEDS ORDERED: ALBUTEROL FS 2.5 MG/3 ML VIAL.NEB NEB PRN ×2 (05:00→05:28)
[2018-02-01] MEDS ORDERED: IPRATROPIUM NEB FS 0.5 MG/2.5 ML AMPUL.NEB NEB PRN ×2 (05:00→05:30)
--- NOTE | 2018-02-01 07:10 | NUR ---
REPORT RECEIVED AT THE BEDSIDE. PATIENT IS SLEEPING AT THIS TIME. DOES NOT APPEAR TO BE IN PAIN, NO FACIAL GRIMACE NOTED. HEART RATE SR IN THE 70 WITH V PACING. BED IN A LOW POSITION, CALL LIGHT WITHIN PATIENT REACH. WILL MONITOR.
[2018-02-01] MEDS ORDERED: MEMA5TAB15 PO (07:31)
--- NOTE | 2018-02-01 07:52 | NUR ---
FAXED PT CONTINUED MED LIST TO PHARMACY. PER NIGHT NURSEJESIKA. FAXED LIST AT CHANGE OF SHIFT YESTERDAY, BUT NOT DONE.
[2018-02-01 08:00] VITALS: BP 137/74
[2018-02-01 08:13] LABS: CALCIUM, SERUM 8.4 mg/dL (8.5-10.1); CARBON DIOXIDE 28 mmol/L (21-32); CHLORIDE 108 mmol/L (98-107); CREATININE 1.1 mg/dL (0.6-1.3); GLUCOSE 90 mg/dL (74-106); POTASSIUM 3.7 mmol/L (3.5-5.1); SODIUM SERUM 142 mmol/L (136-145); UREA NITROGEN, BLOOD 16 mg/dL (7-18)
[2018-02-01 08:18] LABS: BASOPHILS # (AUTO) 0.1 /CMM (0.0-0.2); BASOPHILS % (AUTO) 0.4 % (0.0-2.0); EOSINOPHILS % (AUTO) 0.6 % (0.0-6.0); HEMATOCRIT 32 % (39-51); HEMOGLOBIN 10.6 g/dL (13.5-17.5); LYMPHOCYTES # (AUTO) 1.7 /CMM (0.8-4.8); LYMPHOCYTES % (AUTO) 10.7 % (20.0-44.0); MEAN CORPUSCULAR HGB CONC 33 g/dl (31.0-36.0); MEAN CORPUSCULAR VOLUME 86 fL (80-96); MONOCYTES # (AUTO) 1.4 /CMM (0.1-1.30); NEUTROPHILS # (AUTO) 12.6 /CMM (1.8-8.9); NEUTROPHILS % (AUTO) 79.3 % (43.0-81.0); PLATELET COUNT (AUTO) 288 /CMM (150-450); RDW COEFFICIENT OF VARIATION 15.7 (11.5-15.0); RED BLOOD CELL COUNT(AUTO) 3.73 MIL/uL (4.5-6.0); WHITE BLOOD COUNT (AUTO) 15.9 K/uL (4.3-11.0)
[2018-02-01] MEDS ORDERED: ALBUTEROL FS 2.5 MG/0.5 ML VIAL.NEB NEB PRN (09:00)
[2018-02-01] MEDS ORDERED: MAGNESIUM HYDROXIDE 30 ML UDC PO PRN (09:00)
[2018-02-01] MEDS ORDERED: BISACODYL SUPP (10 MG) 10 MG/SUPP.RECT SUPP.RECT RC PRN (09:00)
[2018-02-01] MEDS ORDERED: IPRATROPIUM NEB FS 0.5 MG/2.5 ML AMPUL.NEB IH PRN (09:00)
[2018-02-01] MEDS: ASPIRIN 81 MG TAB.CHEW PO SCH ×2 (09:00→09:31)
[2018-02-01] MEDS ORDERED: MAG HYDROX/AL HYDROX/SIMETH 30 ML UDC PO PRN (09:00)
[2018-02-01] MEDS: LEVOTHYROXINE SODIUM 125 MCG TABLET PO SCH ×2 (09:00→09:31)
[2018-02-01] MEDS: DOCUSATE SODIUM 100 MG CAPSULE PO SCH ×3 (09:00→16:20)
[2018-02-01] MEDS: OXCARBAZEPINE 150 MG TABLET PO SCH ×4 (09:00→16:20)
[2018-02-01] MEDS: FERROUS SULFATE (325 MG) 325 MG/TAB TABLET PO SCH ×2 (09:00→09:31)
[2018-02-01] MEDS: AMLODIPINE BESYLATE 5 MG TABLET PO SCH ×2 (09:00→09:31)
[2018-02-01] MEDS: PANTOPRAZOLE 40 MG/PACK PACK GT SCH ×2 (09:00→09:31)
[2018-02-01] MEDS: MEMANTINE HCL 5 MG TABLET PO SCH ×2 (09:00→09:31)
[2018-02-01] MEDS ORDERED: ACETAMINOPHEN 325 MG TABLET PO PRN (09:00)
[2018-02-01] MEDS ORDERED: Z GUARD REMEDY 2 OZ OINT TP PRN (09:00)
[2018-02-01] MEDS: CYANOCOBALAMIN 500 MCG TABLET PO SCH ×2 (09:30→09:31)
--- NOTE | 2018-02-01 10:27 | NUR ---
PT REFUSING ALL MORNING MEDS. WHEN ATTEMPTED TO GIVE THEM TO HIM CRUSHED IN APPLESAUCE, HE SPIT THEM OUT. USED HELP OF A WOLOF SPEAKING MANAGER SQL TO TRANSLATE FOR THE PATIENT AND EXPLAIN THE MEDICATIONS, BUT PATIENT IS TOO CONFUSED TO UNDERSTAND. WILL INFORM MD.
--- NOTE | 2018-02-01 11:34 | NUR ---
DAUGHTER GREGORIO IS AT BEDSIDE. DAUGHTER ABLE TO GET PATIENT TO TAKE MORNING MEDS. WILL HOLD 1300 SEIZURE MED IT IS TOO CLOSE TO ADMINISTRATION OF LAST DOSE.
[2018-02-01 12:00] VITALS: BP 139/79
[2018-02-01 16:00] VITALS: BP 124/70
[2018-02-01 20:00] VITALS: BP 121/68
--- NOTE | 2018-02-01 20:00 | NUR ---
RN INITIAL NOTES RECEIVED PATIENT IN BED, AWAKE, CONFUSED,COMBATIVE, TRYING TO HIT RN AND ARTS AND HUMANITIES COUNCIL DIRECTOR. PT TRYING TO REMOVE TELE MONITOR AND CLOTHING. NOTED WITH NO SOB, BREATHING EVEN AND UNLABORED. PT 100% PACING ON TELE MONITOR. IV ACCESS PATENT AND INTACT X2, NO REDNESS OR INFILTRATION NOTED. CALL LIGHT WITHIN EASY REACH, PLACED BED IN LOW POSITION AND LOCKED IN PLACE. WILL CONTINUE TO MONITOR
[2018-02-01] MEDS: LEVOFLOXACIN 500 MG /D5W 100ML 500 MG in PREMIX 1 EA IV SCH (21:28)
[2018-02-01] MEDS: LISINOPRIL (5MG) 5 MG TABLET PO SCH (21:29)
[2018-02-01] MEDS: SIMVASTATIN 20 MG TABLET PO SCH (21:29)
[2018-02-01] MEDS: DONEPEZIL 5 MG TABLET PO SCH (21:33)
[2018-02-01] MEDS ORDERED: LIDOCAINE 1%-EPI 1:100,000 20 ML VIAL ONE (22:38)
[2018-02-02] VITALS: BP_SYST 113; BP_SYST 121; BP_DIAS 65; BP_DIAS 68
[2018-02-02 04:00] VITALS: BP 134/61
--- NOTE | 2018-02-02 06:35 | NUR ---
RN CLOSING NOTES PT REMAINED IN STABLE CONDITION THROUGHOUT THE SHIFT, ALL NEEDS MET, NO SIGNIFICANT CHANGES NOTED. WILL ENDORSE TO ONCOMING SHIFT.
[2018-02-02 08:00] VITALS: BP 122/54
[2018-02-02] MEDS: ASPIRIN 81 MG TAB.CHEW PO SCH (08:50)
[2018-02-02] MEDS: LEVOTHYROXINE SODIUM 125 MCG TABLET PO SCH (08:51)
[2018-02-02] MEDS: DOCUSATE SODIUM 100 MG CAPSULE PO SCH ×2 (08:51→17:33)
[2018-02-02] MEDS: FERROUS SULFATE (325 MG) 325 MG/TAB TABLET PO SCH (08:52)
[2018-02-02] MEDS: CYANOCOBALAMIN 500 MCG TABLET PO SCH (08:52)
[2018-02-02] MEDS: OXCARBAZEPINE 150 MG TABLET PO SCH ×3 (08:52→17:33)
[2018-02-02] MEDS: MEMANTINE HCL 5 MG TABLET PO SCH (08:52)
[2018-02-02] MEDS: AMLODIPINE BESYLATE 5 MG TABLET PO SCH (08:54)
[2018-02-02] MEDS: PANTOPRAZOLE 40 MG/PACK PACK GT SCH (08:54)
[2018-02-02 12:00] VITALS: BP 120/51
[2018-02-02 16:00] VITALS: BP 117/56
--- NOTE | 2018-02-02 19:25 | NUR ---
RN NOTES RECEIVED PT AWAKE, ALERT AND ORIENTED X1 WITH CONFUSION NOTED. WITH O2 INHALATION AT 2LPM VIA NC AND TOLERATED WELL. TELE MONITOR READS V PACING WITH HEART RATE AT 78. PT DENIES ANY PAIN AND DISCOMFORT AT THIS TIME. IV ACCESS ON RIGHT FORE ARM PATENT AND INTACT AND COVERED WITH TONY SLEEVE. SAFETY MEASURES AND FALL PRECAUTION OBSERVED. WILL CONTINUE TO MONITOR PT.
[2018-02-02 20:00] VITALS: BP 133/58
[2018-02-02] MEDS: LEVOFLOXACIN 500 MG /D5W 100ML 500 MG in PREMIX 1 EA IV SCH (21:46)
[2018-02-02] MEDS: LISINOPRIL (5MG) 5 MG TABLET PO SCH (21:55)
[2018-02-02] MEDS: SIMVASTATIN 20 MG TABLET PO SCH (21:56)
[2018-02-02] MEDS: DONEPEZIL 5 MG TABLET PO SCH (21:57)
[2018-02-03] VITALS (8 sets, daily range): BP systolic 116–133; BP diastolic 52–78
--- NOTE | 2018-02-03 06:45 | NUR ---
RN NOTES PT STABLE OVERNIGHT, NO SIGNIFICANT CHANGE IN CONDITION NOTED. COUGH AT TIMES, NON PRODUCTIVE. VITAL SIGNS STABLE, AFEBRILE. KEPT COMFORTABLE AND ATTENDED. TURNED AND REPOSITION Q2H. SAFETY MEASURES AND FALL PRECAUTION OBSERVED. wILL WILL ENDORSE TO LUIS ALBERTO ALEJO FOR CONTINUITY OF CARE.
[2018-02-03 07:08] LABS: BASOPHILS % (AUTO) 0.2 % (0.0-2.0); EOSINOPHILS % (AUTO) 3.4 % (0.0-6.0); HEMATOCRIT 34 % (39-51); HEMOGLOBIN 11.1 g/dL (13.5-17.5); LYMPHOCYTES # (AUTO) 1.3 /CMM (0.8-4.8); LYMPHOCYTES % (AUTO) 15.5 % (20.0-44.0); MEAN CORPUSCULAR HGB CONC 32 g/dl (31.0-36.0); MEAN CORPUSCULAR VOLUME 87 fL (80-96); MONOCYTES # (AUTO) 0.9 /CMM (0.1-1.30); NEUTROPHILS # (AUTO) 6.1 /CMM (1.8-8.9); NEUTROPHILS % (AUTO) 70.9 % (43.0-81.0); PLATELET COUNT (AUTO) 314 /CMM (150-450); RDW COEFFICIENT OF VARIATION 15.3 (11.5-15.0); RED BLOOD CELL COUNT(AUTO) 3.94 MIL/uL (4.5-6.0); WHITE BLOOD COUNT (AUTO) 8.6 K/uL (4.3-11.0)
[2018-02-03 07:22] LABS: CALCIUM, SERUM 8.4 mg/dL (8.5-10.1); CARBON DIOXIDE 28 mmol/L (21-32); CHLORIDE 103 mmol/L (98-107); CREATININE 1.1 mg/dL (0.6-1.3); GLUCOSE 97 mg/dL (74-106); MAGNESIUM 2.2 mg/dL (1.8-2.4); POTASSIUM 3.8 mmol/L (3.5-5.1); SODIUM SERUM 139 mmol/L (136-145); UREA NITROGEN, BLOOD 14 mg/dL (7-18)
--- NOTE | 2018-02-03 07:23 | NUR ---
STONE PROCESSING MACHINE OPERATOR NOTES RECEIVED PT AWAKE IN BED IN NO ACUTE SIGNS OF DISTRESS. HOB ELEVATED. ALERT AND ORIENTED X1 WITH CONFUSION NOTED. PT DENIES ANY PAIN AND DISCOMFORT AT THIS TIME. PT ON O2 @ 2LPM VIA NC AND TOLERATED WELL, NO SIGNS OF SOB NOTED. ON TELE MONITORING WITH CURRENT READING OF V PACING WITH HEART RATE AT 72. IV ACCESS ON RIGHT FA PATENT AND INTACT AND COVERED WITH TONY SLEEVE. BED IN LOW/LOCKED POSITION WITH SIDE-RAILS UP APPROPRIATE. ALL SAFETY MEASURES AND FALL PRECAUTION ENFORCED. WILL CONTINUE TO MONITOR PT.
[2018-02-03] MEDS: PANTOPRAZOLE 40 MG/PACK PACK GT SCH (08:26)
[2018-02-03] MEDS: MEMANTINE HCL 5 MG TABLET PO SCH (08:26)
[2018-02-03] MEDS: FERROUS SULFATE (325 MG) 325 MG/TAB TABLET PO SCH (08:26)
[2018-02-03] MEDS: DOCUSATE SODIUM 100 MG CAPSULE PO SCH ×2 (08:26→16:23)
[2018-02-03] MEDS: LEVOTHYROXINE SODIUM 125 MCG TABLET PO SCH (08:26)
[2018-02-03] MEDS: CYANOCOBALAMIN 500 MCG TABLET PO SCH (08:27)
[2018-02-03] MEDS: AMLODIPINE BESYLATE 5 MG TABLET PO SCH (08:27)
[2018-02-03] MEDS: OXCARBAZEPINE 150 MG TABLET PO SCH ×3 (08:27→16:24)
[2018-02-03] MEDS: ASPIRIN 81 MG TAB.CHEW PO SCH (08:27)
--- NOTE | 2018-02-03 18:50 | NUR ---
ENTREPRENEURIAL FINANCE PROFESSOR CLOSING NOTES PT AWAKE AND RESTING AT MODERATE HIGH BACKREST IN BED AT THIS TIME. A/O X1. CALMED AND COOPERATIVE TODAY WITH PERIOD OF CONFUSION NOTED. PT VISITED BY DAUGHTER THIS AFTERNOON. MAINTAINED ON O2 @ 2LPM VIA N/C, TOLERATING WELL WITH NO SIGNS OF SOB NOTED. ON TELE MONITORING WITH CURRENT READING OF V PACING WITH HR AT 78. IV ACCESS ON RIGHT FA PATENT AND INTACT AND COVERED WITH TONY-SLEEVE. HOB KEPT ELEVATED. BED IN LOW/LOCKED POSITION WITH SIDE-RAILS UP X3. ALL SAFETY MEASURES AND FALL PRECAUTIONS MAINTAINED. ALL NEEDS AND CARE PROVIDED WELL. WILL ENDORSED TO CASTING ASSISTANT NURSE FOR STEPHANIE.
--- NOTE | 2018-02-03 19:50 | NUR ---
RN INITIAL NOTES: RECEIVED REPORT FROM ARMANDO ALEJO, PT IN BED, AWAKE, A/O X1 TO SELF ONLY, ON 2L VIA NC RESPIRATION EVEN AND UNLABORED, NO FACIAL GRIMACE NOTED, RIGHT FA IV ACCESS PATENT AND FLUSHING WELL, ON HL. ON TELE MONITORING SINUS RHYTHM HR 72. SAFETY PRECAUTIONS FOR FALL INITIATED, CALL LIGHT IN REACH, WILL CONTINUE MONITORING PT.
[2018-02-03] MEDS: SIMVASTATIN 20 MG TABLET PO SCH (22:10)
[2018-02-03] MEDS: LEVOFLOXACIN 500 MG /D5W 100ML 500 MG in PREMIX 1 EA IV SCH (22:10)
[2018-02-03] MEDS: DONEPEZIL 5 MG TABLET PO SCH (22:11)
[2018-02-03] MEDS: LISINOPRIL (5MG) 5 MG TABLET PO SCH (22:22)
--- NOTE | 2018-02-03 22:33 | NUR ---
RN NOTES: ASPIRATION PROTOCOL INITIATED, PLACED PT ON HIGH FOWLERS POSITION, FEED PT WITH PUDDING AND APPLE SAUCE AND WATER WITH THICKENER, PT ATE WITH GOOD APPETITE, FINISHED THE SNACK 100%
[2018-02-04] VITALS: BP 106/52
[2018-02-04 04:00] VITALS: BP 131/68
[2018-02-04 06:31] LABS: CALCIUM, SERUM 8.6 mg/dL (8.5-10.1); CARBON DIOXIDE 26 mmol/L (21-32); CHLORIDE 102 mmol/L (98-107); CREATININE 1.1 mg/dL (0.6-1.3); GLUCOSE 95 mg/dL (74-106); MAGNESIUM 2.3 mg/dL (1.8-2.4); PHOSPHORUS 4.1 mg/dL (2.5-4.9); POTASSIUM 3.9 mmol/L (3.5-5.1); SODIUM SERUM 138 mmol/L (136-145); UREA NITROGEN, BLOOD 14 mg/dL (7-18)
--- NOTE | 2018-02-04 06:44 | NUR ---
RN CLOSING NOTES: PT IN BED, REMAINS CONFUSED, ON 2L VIA NC, RESPIRATION EVEN AND UNLABORED. IV ACCESS REMAINS PATENT AND FLUSHING WELL ON HL. REMAINS ON SINUS RHYTHM HR 65. NO ASPIRATION NOTED THROUGHOUT THE SHIFT. VS REMAINS STABLE, NEEDS ATTENDED. SAFETY PRECAUTIONS FOR FALL REMAINS ENGAGED, CALL LIGHT IN REACH, WILL ENDORSE TO DAY RN FOR STEPHANIE. Addendum: 02/04/18 at 1739 by CRISTOPHER WOOD RN WILL CONT TO MONITOR CLOSELY
[2018-02-04 07:13] LABS: BASOPHILS % (AUTO) 0.4 % (0.0-2.0); EOSINOPHILS % (AUTO) 4.4 % (0.0-6.0); HEMATOCRIT 36 % (39-51); HEMOGLOBIN 11.9 g/dL (13.5-17.5); LYMPHOCYTES # (AUTO) 1.6 /CMM (0.8-4.8); LYMPHOCYTES % (AUTO) 18.9 % (20.0-44.0); MEAN CORPUSCULAR HGB CONC 33 g/dl (31.0-36.0); MEAN CORPUSCULAR VOLUME 86 fL (80-96); MONOCYTES # (AUTO) 0.8 /CMM (0.1-1.30); MONOCYTES % (AUTO) 10.1 % (2.0-12.0); NEUTROPHILS # (AUTO) 5.6 /CMM (1.8-8.9); NEUTROPHILS % (AUTO) 66.2 % (43.0-81.0); PLATELET COUNT (AUTO) 320 /CMM (150-450); RDW COEFFICIENT OF VARIATION 14.3 (11.5-15.0); RED BLOOD CELL COUNT(AUTO) 4.19 MIL/uL (4.5-6.0); WHITE BLOOD COUNT (AUTO) 8.4 K/uL (4.3-11.0)
--- NOTE | 2018-02-04 07:56 | NUR ---
RN NOTES: PT IN BED, REMAINS CONFUSED, ON 2L VIA NC, RESPIRATION EVEN AND UNLABORED. IV ACCESS REMAINS PATENT AND FLUSHING WELL ON HL. REMAINS ON SINUS RHYTHM ON TELE MONITOR . ALL NEEDS ATTENDED. SAFETY PRECAUTIONS FOR FALL REMAINS ENGAGED, CALL LIGHT IN REACH, BED IN LOWEST AND LOCKED POSITION ,WILL CON TO MONITOR CLOSELY
[2018-02-04 08:00] VITALS: BP 110/60
[2018-02-04] MEDS: MEMANTINE HCL 5 MG TABLET PO SCH (09:03)
[2018-02-04] MEDS: LEVOTHYROXINE SODIUM 125 MCG TABLET PO SCH (09:03)
[2018-02-04] MEDS: ASPIRIN 81 MG TAB.CHEW PO SCH (09:04)
[2018-02-04] MEDS: OXCARBAZEPINE 150 MG TABLET PO SCH ×3 (09:04→17:10)
[2018-02-04] MEDS: AMLODIPINE BESYLATE 5 MG TABLET PO SCH (09:04)
[2018-02-04] MEDS: DOCUSATE SODIUM 100 MG CAPSULE PO SCH ×2 (09:04→17:10)
[2018-02-04] MEDS: CYANOCOBALAMIN 500 MCG TABLET PO SCH (09:04)
[2018-02-04] MEDS: PANTOPRAZOLE 40 MG/PACK PACK GT SCH (09:06)
[2018-02-04] MEDS: FERROUS SULFATE (325 MG) 325 MG/TAB TABLET PO SCH (09:06)
[2018-02-04] MEDS ORDERED: LEVOFLOXACIN (500MG) 500 MG TABLET PO SCH ×2 (12:00→21:00)
--- NOTE | 2018-02-04 12:00 | NUR ---
MS RN NOTE HAVING LUNCH FED ,BY STUFF , ATE 100% . POSSIBLE DISCHARGE TO SNF , SPOKE WITH GRAHAM ALEJO FROM [facility] , STATED TO CALL LATTER, NO BED AVAILABLE AT THIS TIME, CHARGE NURSE SHAN CALLED BATSHEVA HARNESS MENDER ,WILL F\ U,DR SOMMER AWARE THAT PATIENT WILL BE DISCHARGE TO [facility] [place] WHEN BED AVAILABLE, WILL F\U , CALLED DAUGHTER GREGROIO NOTIFIED THAT PATIENT, WILL BE POSSIBLE DISCHARGE
--- NOTE | 2018-02-04 14:27 | NUR ---
MS RN NOTE AWAITING CALL FROM DISCIPLINARY HEARING OFFICER ABOUT TRANSFER TO SNF
--- NOTE | 2018-02-04 15:56 | NUR ---
MS RN NOTE CALLED MYLENE ALEJO FROM [facility] ,REPORT GIVEN
[2018-02-04 16:00] VITALS: BP 106/61
--- NOTE | 2018-02-04 17:28 | NUR ---
MS RN NOTE AMBULANCE ARRIVED, REPORT GIVEN , HL ON RT FA REMOVED ,NO S\S INFECTION OR BLEEDING NOTED ,NO REDNESS NOTED , TAKEN BY AMBULANCE WITH STABLE CONDITION , TELE MONITOR REMOVED
== END 2018-02-04 18:05 | DRG 871 ==
LOC: ER 16:55 → TELE1 19:46 → MEDSG1 02-04 10:11
PROVIDERS: ADMIT Internal Medicine; ATTEND Internal Medicine
DX: A41.9 Sepsis, unspecified organism (principal); I21.A1 Myocardial infarction type 2; I11.0 Hypertensive heart disease with heart failure; G92 Toxic encephalopathy; J15.9 Unspecified bacterial pneumonia; D63.8 Anemia in other chronic diseases classified elsewhere; I50.9 Heart failure, unspecified; D64.9 Anemia, unspecified; I25.10 Atherosclerotic heart disease of native coronary artery without angina pectoris; E78.5 Hyperlipidemia, unspecified; K21.9 Gastro-esophageal reflux disease without esophagitis; D72.829 Elevated white blood cell count, unspecified; G30.9 Alzheimer's disease, unspecified; F02.80 Dementia in other diseases classified elsewhere, unspecified severity, without behavioral disturbance, psychotic disturbance, mood disturbance, and anxiety; Z86.73 Personal history of transient ischemic attack (TIA), and cerebral infarction without residual deficits; Z99.3 Dependence on wheelchair; E03.9 Hypothyroidism, unspecified
CPT/HCPCS: 36415; 36600; 70450-TC; 71045-TC; 80048-TC; 80076-TC; 81000-TC; 82803-TC; 83605-TC; 83735-TC; 84100-TC; 84484-TC; 85025-TC; 85730-TC; 87040-TC; 87081-TC; 87086-TC; A4216; A4217; A4606; J1956; J2185; J3370; J3490; J7050; J7060; Z7610

== ENCOUNTER 2019-04-12 08:05 | Inpatient (IN) | payer MEDICARE, MEDICAID ==
[~2019-04-12] VITALS: Ht 177.8 cm; Wt 74.4 kg
[~2019-04-12 08:05] MED LIST changes: -AZTR1FRO IV; +DOCU100C36 PO; -IPRA0.2S49 NEB; +IPRA0.2S9 IH; +MEMA5TAB15 PO; -MEMA7CAP PO; -VANC750P7 IV
--- NOTE | 2019-04-12 08:05 | NUR ---
TUSHAR RA [id number] FROM [facility] BECAUSE OF FEVER. TYLENOL GIVEN IN FACILITY AT 530AM, PT 99.4F VIA RECTAL UPON ARRIVAL, LETHARGIC, AROUSABLE BY PAINFUL STIMULI. TACHYPNEIC, WARM TO TOUCH. ON ROOM AIR AT 95% O2 SAT. TO ER BED 8, HOOKED TO INFORMATION TECH, CHANGED TO [facility], AWAITING MD ALBRECHT.
--- NOTE | 2019-04-12 08:14 | NUR ---
DR PIERDA AT BEDSIDE
[2019-04-12] MEDS ORDERED: IV NS 0.9% 500 ML BAG IV ONE (08:30)
[2019-04-12 08:32] LABS: APPEARANCE,URINE Slightly Cloudy (CLEAR); BILIRUBIN,URINE Negative (NEGATIVE); BLOOD, URINE Moderate Ery/uL (NEGATIVE); COLOR,URINE Yellow (YELLOW); KETONES,URINE Negative (NEGATIVE); LEUKOCYTE ESTERASE ,URINE Negative (NEGATIVE); NITRITE, URINE Negative (NEGATIVE); PROTEIN,URINE 30 mg/dl (NEGATIVE); UGLUCOSE Negative (NEGATIVE); UROBILINOGEN,URINE 0.2 EU/dL (0.2)
[2019-04-12 08:34] LABS: BASOPHILS % (AUTO) 0.3 % (0.0-2.0); EOSINOPHILS % (AUTO) 1.7 % (0.0-6.0); HEMATOCRIT 39 % (39-51); HEMOGLOBIN 12.5 g/dL (13.5-17.5); LYMPHOCYTES # (AUTO) 1.3 /CMM (0.8-4.8); LYMPHOCYTES % (AUTO) 12.4 % (20.0-44.0); MEAN CORPUSCULAR HGB CONC 32 g/dl (31.0-36.0); MEAN CORPUSCULAR VOLUME 88 fL (80-96); MONOCYTES # (AUTO) 1.4 /CMM (0.1-1.30); MONOCYTES % (AUTO) 13.1 % (2.0-12.0); NEUTROPHILS # (AUTO) 7.6 /CMM (1.8-8.9); NEUTROPHILS % (AUTO) 72.5 % (43.0-81.0); PLATELET COUNT (AUTO) 279 /CMM (150-450); RED BLOOD CELL COUNT(AUTO) 4.41 MIL/uL (4.5-6.0); WHITE BLOOD COUNT (AUTO) 10.5 K/uL (4.3-11.0)
[2019-04-12 08:36] LABS: CALCIUM, SERUM 8.6 mg/dL (8.5-10.1); CARBON DIOXIDE 27 mmol/L (21-32); CHLORIDE 101 mmol/L (98-107); CREATININE 1.3 mg/dL (0.6-1.3); GLUCOSE 144 mg/dL (74-106); POTASSIUM 3.7 mmol/L (3.5-5.1); SODIUM SERUM 136 mmol/L (136-145); UREA NITROGEN, BLOOD 19 mg/dL (7-18)
[2019-04-12 08:41] LABS: WBC,URINE 0-3 /HPF (0-3)
[2019-04-12] MEDS ORDERED: PRAV40TA PO (08:41)
[2019-04-12] MEDS ORDERED: FAMO20TA8 PO (08:41)
[2019-04-12] MEDS ORDERED: NA P133E RC (08:41)
[2019-04-12 08:42] LABS: BACTERIA,URINE Rare /HPF (None Seen); SQUAMOUS EPITHELIAL CELL,UR Few /HPF (None Seen); URINE AMORPHOUS URATE Few /HPF (None Seen)
[2019-04-12 08:54] LABS: ALBUMIN 3.2 g/dL (3.4-5.0); BILIRUBIN,TOTAL 0.2 mg/dL (0.2-1.0); TOTAL PROTEIN, SERUM 7.8 g/dL (6.4-8.2)
[2019-04-12] MEDS ORDERED: AZTREONAM 1 G in IV NS 0.9% 100 ML IV ONE (09:00)
[2019-04-12] MEDS ORDERED: VANCOMYCIN 1 GM in IV D5W 250 ML IV ONE ×2 (09:00→12:00)
[2019-04-12] MEDS ORDERED: IV NS 0.9% 1,000 ML BAG IV ONE (09:00)
[2019-04-12] MEDS ORDERED: LEVOFLOXACIN 750 MG /D5W 150ML 150 ML IV ONE ×2 (09:00→11:00)
--- NOTE | 2019-04-12 09:10 | NUR ---
PHARMACY CLARIFIED W OF AZACTAM 1G IVPB PT IS ALLERGIC TO PCN, ASKED DR PIEDRA AND SAID IT'S OK AND CONTINUE WITH ORDER.
--- NOTE | 2019-04-12 09:50 | NUR ---
REPORT GIVEN TO MAYCO ALEJO OF TELE UNIT
[2019-04-12] MEDS ORDERED: ALBUTEROL FS 2.5 MG/3 ML VIAL.NEB ONE (10:12)
[2019-04-12] MEDS ORDERED: IPRATROPIUM NEB FS 0.5 MG/2.5 ML AMPUL.NEB ONE (10:12)
--- NOTE | 2019-04-12 10:13 | NUR ---
RECEIVED REPORT FROM ED
[2019-04-12 10:22] LABS: ABG BASE EXCESS -2.7 mmol/L; ABG OXYGEN SATURATION 92.3 % (92.0-98.5); ABG PCO2 46.6 mmHg (35.0-45.0); ABG PH 7.322 (7.350-7.450); ABG PO2 71.7 mmHg (75.0-100.0); AaDO2 22.2 mmHg; COHb 0.3 % (0.5-1.5); MetHb 0.5 % (0.0-1.5); O2Hb 91.6 % (94.0-97.0); SITE, ABG Left Radial; VENT MODE, BG ROOM AIR
[2019-04-12] MEDS ORDERED: ALBUTEROL FS 2.5 MG/3 ML VIAL.NEB NEB ONE (10:30)
[2019-04-12] MEDS ORDERED: IPRATROPIUM NEB FS 0.5 MG/2.5 ML AMPUL.NEB NEB ONE (10:30)
--- NOTE | 2019-04-12 10:35 | NUR ---
PT TRANSFERRED TO TELE UNIT W ONGOING AZACTAM 1GM IVPB. ORDERS TO CONTINUE IV ATB INFUSION IN THE FLOOR ORDERED IN ER PER DR PIEDRA. PHARMACY INFORMED.
--- NOTE | 2019-04-12 10:40 | NUR ---
PATIENT ARRIVED TO UNIT VIA GURNEY
--- NOTE | 2019-04-12 13:14 | NUR ---
RN ADMITTING NOTES RECEIVED PATIENT FROM ED WELL NOURISHED MALE A/O X1 SELF MONGOLIAN SPEAKING END STAGE DEMENTIA AND ALZHEIMER ON 8 LTRS VIA MASK WHEEZING NOTED . NO SIGNS OR SYMPTOMS OF PAIN.SINUS ON TELE MONITOR TACHY 110'S. SKIN INTACT PHOTOS TAKEN. BEDBOUND AT THIS TIME. IV TO RFA # 18 GAUGE COVERED D/T PATIENT HAS HISTORY OF PULLING OUT LINES. LEFT MESSAGE WITH DR LEDEZMA FOR ADMIT ORDERS AND CRITICAL LAB LACTIC ACID 2.8. SAFETY AND FALL PRECAUTIONS IN PLACE BED IN LOW POSITION CALL LIGHT WITHIN REACH WILL CONT TO MONITOR ACCORDINGLY
--- NOTE | 2019-04-12 13:20 | NUR ---
SPOKE WITH DAUGHTER GREGORIO ON PHONE [phone]. SAYS THAT FATHER IS END STAGE DEMENTIA AND VERY FORGETFUL. HAS HAD NO EPISODED OF AGITATION SINCE MEDICATION BEEEN REGULATED. CALL IF ANY CHANGES TO FATHERS CONDITION
[2019-04-12] MEDS ORDERED: ONDANSETRON HCL/PF 4 MG/2 ML VIAL IVP PRN (13:30)
[2019-04-12] MEDS ORDERED: MAGNESIUM HYDROXIDE 30 ML UDC PO PRN ×2 (13:30)
[2019-04-12] MEDS ORDERED: MAG HYDROX/AL HYDROX/SIMETH 30 ML UDC PO PRN ×2 (13:30)
[2019-04-12] MEDS ORDERED: ALBUTEROL FS 2.5 MG/0.5 ML VIAL.NEB NEB PRN (13:30)
[2019-04-12] MEDS ORDERED: NA PHOS,M-B/NA PHOS,DI-BA 1 EA ENEMA RC PRN (13:30)
[2019-04-12] MEDS ORDERED: ZOLPIDEM TARTRATE 5 MG TABLET PO PRN (13:30)
[2019-04-12] MEDS ORDERED: ACETAMINOPHEN 325 MG TABLET PO PRN (13:30)
[2019-04-12] MEDS ORDERED: Z GUARD REMEDY 2 OZ OINT TP PRN (13:30)
[2019-04-12] MEDS ORDERED: BISACODYL SUPP (10 MG) 10 MG/SUPP.RECT SUPP.RECT RC PRN (13:30)
[2019-04-12] MEDS ORDERED: IPRATROPIUM NEB FS 0.5 MG/2.5 ML AMPUL.NEB IH PRN (13:30)
[2019-04-12] MEDS ORDERED: FEE PK DOSING 1 MIN EA MC ONE (13:54)
[2019-04-12] MEDS: ENOXAPARIN SODIUM 40 MG/0.4 ML DISP.SYRIN SQ SCH (14:25)
[2019-04-12] MEDS: methylPREDNISolone SOD SUCC 125 MG/2ML VIAL IV SCH ×2 (14:25→21:50)
[2019-04-12 16:00] VITALS: BP_SYST 124; BP_SYST 130; BP_DIAS 59; BP_DIAS 71
[2019-04-12] MEDS: MEROPENEM 500 MG in IV NS 0.9% 50 ML IV SCH (16:59)
[2019-04-12] MEDS: OXCARBAZEPINE 150 MG TABLET PO SCH (17:00)
[2019-04-12] MEDS: DOCUSATE SODIUM 100 MG CAPSULE PO SCH (17:00)
--- NOTE | 2019-04-12 18:56 | NUR ---
RN NOTES PATIENT REMAINS LETHARGIC BUT RESPONSIVE TO NAME AND TOUCH BURKINAN AND COMORAN SPEAKING.NO SIGNS OR SYMPTOMS OF RESPIRATORY DISTRESS ON 3 LTRS NASAL CANNULA. WHEEZING NOTED. NO SIGNS OR SYMPTOMS OF PAIN. INCONTINENT OF B&B 2 X WET DIAPERS. SKIN INTACT IV TO RFA # 18 GAUGE TKO. NO NEW ORDERS AT THIS TIME KEPT CLEAN AND DRY SAFETY AND ASPIRATION PRECAUTIONS IN PLACE BED IN LOW POSITION WILL ENDORSED TO NOC.
--- NOTE | 2019-04-12 19:27 | NUR ---
REPORT ENDORSED TO NOC
--- NOTE | 2019-04-12 19:30 | NUR ---
HVAC ENGINEER NOTE PATIENT STABLE REPORT GIVEN BEDSIDE. PATIENT SEEMS LETHARGIC, BUT SMILES AND LAUGHS IN THE PRESENCE OF HIS DAUGHTER. PATIENT IS NON VERBAL AND SLOW TO RESPOND. PATIENT A/O X 1. PATIENT APPEARS TO BE IN NO PAIN OR DISCOMFORT OR DISTRESS. PATIENT HR IS VPACING AT 93 HR. CHEST RISE EVEN AND UNLABORED. SAFETY PRECAUTIONS IN PLACE. RN WILL CONTINUE TO MONITOR.
[2019-04-12 20:00] VITALS: BP 134/72
[2019-04-12] MEDS: ALBUTEROL FS 2.5 MG/0.5 ML VIAL.NEB NEB SCH (20:33)
[2019-04-12] MEDS: IPRATROPIUM NEB FS 0.5 MG/2.5 ML AMPUL.NEB IH SCH (20:34)
[2019-04-12] MEDS: LISINOPRIL (5MG) 5 MG TABLET PO SCH (21:51)
[2019-04-12] MEDS: DONEPEZIL 5 MG TABLET PO SCH (21:51)
--- NOTE | 2019-04-12 21:55 | NUR ---
INJURY/SAFETY HAZARD ASSESSMENT NOTE PATIENT UNABLE TO FOLLOW INSTRUCTIONS TO SWALLOW, DESPITE USING APPLESAUCE. UNABLE TO GIVE PO MEDS. MD AWARE NO NEW ORDERS GIVEN.
[2019-04-13] VITALS (7 sets, daily range): BP systolic 111–135; BP diastolic 51–78
[2019-04-13] MEDS: ALBUTEROL FS 2.5 MG/0.5 ML VIAL.NEB NEB SCH ×4 (02:09→19:48)
[2019-04-13] MEDS: IPRATROPIUM NEB FS 0.5 MG/2.5 ML AMPUL.NEB IH SCH ×4 (02:09→19:48)
[2019-04-13] MEDS: MEROPENEM 500 MG in IV NS 0.9% 50 ML IV SCH ×2 (03:14→15:21)
[2019-04-13] MEDS: methylPREDNISolone SOD SUCC 125 MG/2ML VIAL IV SCH ×3 (04:31→21:25)
[2019-04-13] MEDS: VANCOMYCIN 1 GM in IV D5W 250 ML IV SCH (06:03)
[2019-04-13 07:14] LABS: HEMATOCRIT 37 % (39-51); LYMPHOCYTES # (AUTO) 0.7 /CMM (0.8-4.8); LYMPHOCYTES % (AUTO) 9.3 % (20.0-44.0); MEAN CORPUSCULAR HGB CONC 32 g/dl (31.0-36.0); MEAN CORPUSCULAR VOLUME 87 fL (80-96); MONOCYTES # (AUTO) 0.2 /CMM (0.1-1.30); MONOCYTES % (AUTO) 2.3 % (2.0-12.0); NEUTROPHILS # (AUTO) 7.1 /CMM (1.8-8.9); NEUTROPHILS % (AUTO) 88.4 % (43.0-81.0); PLATELET COUNT (AUTO) 264 /CMM (150-450); RED BLOOD CELL COUNT(AUTO) 4.24 MIL/uL (4.5-6.0)
--- NOTE | 2019-04-13 07:17 | NUR ---
SWITCHBOARD AND CONTROL ROOM OPERATOR NOTE NO ACUTE CHANGES THROUGHOUT THE NIGHT PATIENT TOLERATED THE NIGHT WELL. NO S/S OF ACUTE DISTRESS. ENDORSED POC TO AM FOR STEPHANIE. SAFETY PRECAUTIONS IN PLACE.
[2019-04-13 07:26] LABS: CHOLESTEROL 223 mg/dL (<200); HDL CHOLESTEROL 59 mg/dL (40-60); LDL 157 mg/dL (0-99); TRIGLYCERIDES 29 mg/dL (30-150)
[2019-04-13 07:30] LABS: CALCIUM, SERUM 8.5 mg/dL (8.5-10.1); CARBON DIOXIDE 26 mmol/L (21-32); CHLORIDE 102 mmol/L (98-107); GLUCOSE 169 mg/dL (74-106); PHOSPHORUS 2.9 mg/dL (2.5-4.9); POTASSIUM 4.1 mmol/L (3.5-5.1); SODIUM SERUM 137 mmol/L (136-145); UREA NITROGEN, BLOOD 14 mg/dL (7-18)
[2019-04-13] MEDS: FAMOTIDINE (20 MG) 20 MG TABLET PO SCH (07:30)
[2019-04-13] MEDS: LEVOTHYROXINE SODIUM 125 MCG TABLET PO SCH (07:30)
[2019-04-13] MEDS: AMLODIPINE BESYLATE 5 MG TABLET PO SCH (08:54)
[2019-04-13] MEDS: DOCUSATE SODIUM 100 MG CAPSULE PO SCH ×2 (08:54→17:00)
[2019-04-13] MEDS: ASPIRIN 81 MG TAB.CHEW PO SCH (08:54)
[2019-04-13] MEDS: OXCARBAZEPINE 150 MG TABLET PO SCH ×3 (08:54→17:00)
[2019-04-13] MEDS: MEMANTINE HCL 5 MG TABLET PO SCH (08:54)
[2019-04-13] MEDS: IV D5/ 0.9% NACL 1,000 ML IV PRN (13:29)
--- NOTE | 2019-04-13 18:49 | NUR ---
Pt started on d5ns per md order ,awaiting for swallow eval on Monday.Pt stable no s/s of acute distress noted.
--- NOTE | 2019-04-13 19:25 | NUR ---
MS RN OPENING NOTES PATIENT RESTING IN BED, AWAKE, ALERT AND ORIENTED X1, SLOW TO RESPOND. PATIENT APPEARS TO BE IN NO PAIN OR DISCOMFORT OR DISTRESS. ON ROOM AIR, CHEST RISE EVEN AND UNLABORED. IV SITE C/D/I, FLUIDS RUNNING ORDERED, TOLERATING WELL, NO INFILTRATION ON SITE NOTED. SAFETY PRECAUTIONS IN PLACE; BED LOCKED AND IN LOWEST POSITION, SIDE RAILS UP X3, CALL LIGHT WITHIN REACH. WILL CONT TO MONITOR PT.
[2019-04-13] MEDS: ENOXAPARIN SODIUM 40 MG/0.4 ML DISP.SYRIN SQ SCH (21:26)
[2019-04-13] MEDS: DONEPEZIL 5 MG TABLET PO SCH (22:00)
[2019-04-13] MEDS: LISINOPRIL (5MG) 5 MG TABLET PO SCH (22:00)
[2019-04-14] MEDS: VANCOMYCIN 1 GM in IV D5W 250 ML IV SCH ×2 (00:15→13:00)
[2019-04-14] MEDS: ALBUTEROL FS 2.5 MG/0.5 ML VIAL.NEB NEB SCH ×4 (01:52→19:22)
[2019-04-14] MEDS: IPRATROPIUM NEB FS 0.5 MG/2.5 ML AMPUL.NEB IH SCH ×4 (01:52→19:22)
[2019-04-14] MEDS: MEROPENEM 500 MG in IV NS 0.9% 50 ML IV SCH ×2 (03:06→15:39)
[2019-04-14] MEDS: IV D5/ 0.9% NACL 1,000 ML IV PRN ×2 (03:07→22:31)
[2019-04-14 04:00] VITALS: BP 131/73
[2019-04-14] MEDS: methylPREDNISolone SOD SUCC 125 MG/2ML VIAL IV SCH ×3 (04:45→21:39)
--- NOTE | 2019-04-14 06:38 | NUR ---
MS RN OPENING NOTES PATIENT RESTING IN BED, AWAKE, ALERT AND ORIENTED X1, SLOW TO RESPOND. PATIENT APPEARS TO BE IN NO PAIN OR DISCOMFORT OR DISTRESS. PATIENT HAD EPISODES OF WHEEZING BUT GOES AWAY. ON ROOM AIR, CHEST RISE EVEN AND UNLABORED, SATURATING 95-97%. IV SITE C/D/I, FLUIDS RUNNING ORDERED, TOLERATING WELL, NO INFILTRATION ON SITE NOTED. SAFETY PRECAUTIONS IN PLACE; BED LOCKED AND IN LOWEST POSITION, SIDE RAILS UP X3, CALL LIGHT WITHIN REACH. NO ACUTE CHANGES THROUGHOUT SHIFT. ALL MD ORDERS ATTENDED. ALL NEEDS ANTICIPATED AND MET. PATIENT KEPT CLEAN AND DRY. PT STILL NPO; SWALLOW EVAL PENDING AND DIETARY CONSULT PENDING. WILL ENDORSE TO AM NURSE FOR STEPHANIE. Addendum: 04/14/19 at 0639 by JAMES PAYNE RN CORRECTION: MS ALEJO CLOSING NOTES
[2019-04-14 06:59] LABS: CALCIUM, SERUM 8.4 mg/dL (8.5-10.1); CARBON DIOXIDE 22 mmol/L (21-32); CHLORIDE 104 mmol/L (98-107); CREATININE 1.2 mg/dL (0.6-1.3); GLUCOSE 154 mg/dL (74-106); POTASSIUM 3.9 mmol/L (3.5-5.1); SODIUM SERUM 139 mmol/L (136-145); UREA NITROGEN, BLOOD 19 mg/dL (7-18)
[2019-04-14 08:00] VITALS: BP 148/77
[2019-04-14] MEDS: FAMOTIDINE (20 MG) 20 MG TABLET PO SCH (08:41)
[2019-04-14] MEDS: MEMANTINE HCL 5 MG TABLET PO SCH (08:42)
[2019-04-14] MEDS: OXCARBAZEPINE 150 MG TABLET PO SCH ×3 (08:44→17:24)
[2019-04-14] MEDS: LEVOTHYROXINE SODIUM 125 MCG TABLET PO SCH (08:44)
[2019-04-14] MEDS: DOCUSATE SODIUM 100 MG CAPSULE PO SCH ×2 (08:44→17:24)
[2019-04-14] MEDS: AMLODIPINE BESYLATE 5 MG TABLET PO SCH (08:44)
[2019-04-14] MEDS: ASPIRIN 81 MG TAB.CHEW PO SCH (08:45)
[2019-04-14 12:00] VITALS: BP 142/77
[2019-04-14 16:00] VITALS: BP 115/64
[2019-04-14 20:00] VITALS: BP 138/71
[2019-04-14] MEDS: DONEPEZIL 5 MG TABLET PO SCH (21:39)
[2019-04-14] MEDS: LISINOPRIL (5MG) 5 MG TABLET PO SCH (21:39)
[2019-04-14] MEDS: ENOXAPARIN SODIUM 40 MG/0.4 ML DISP.SYRIN SQ SCH (21:39)
[2019-04-15] MEDS: VANCOMYCIN 1 GM in IV D5W 250 ML IV SCH ×2 (01:11→12:10)
[2019-04-15] MEDS: ALBUTEROL FS 2.5 MG/0.5 ML VIAL.NEB NEB SCH ×4 (01:22→19:25)
[2019-04-15] MEDS: IPRATROPIUM NEB FS 0.5 MG/2.5 ML AMPUL.NEB IH SCH ×4 (01:22→19:25)
[2019-04-15] MEDS: MEROPENEM 500 MG in IV NS 0.9% 50 ML IV SCH (03:13)
[2019-04-15 04:00] VITALS: BP 121/71
[2019-04-15] MEDS: methylPREDNISolone SOD SUCC 125 MG/2ML VIAL IV SCH (05:12)
[2019-04-15 07:07] LABS: CALCIUM, SERUM 7.8 mg/dL (8.5-10.1); CARBON DIOXIDE 28 mmol/L (21-32); CHLORIDE 108 mmol/L (98-107); GLUCOSE 152 mg/dL (74-106); POTASSIUM 3.9 mmol/L (3.5-5.1); SODIUM SERUM 142 mmol/L (136-145); UREA NITROGEN, BLOOD 17 mg/dL (7-18)
--- NOTE | 2019-04-15 07:10 | NUR ---
MS RN OPENING NOTES RECEIVED PT LYING ON BED.ALERT/ORIENTED X1 WITH CONFUSED.ON NC 2 L CONTINUOUSLY,NO SOB AND ACUTE DISTRESS NOTED.IV LINE IS ON RIGHT FA G18 WITH D5NS @75CCC/HR IS RUNNING,SITE IS CLEAN,DRY AND INTACT.NO INFILTRATION NOTED.BED IS IN LOW POSITION AND LOCKED,CALL LIGHT IS WITHIN REACH.WILL CONTINUE TO MONITOR THE PT CLOSELY.
[2019-04-15 08:00] VITALS: BP 134/71
[2019-04-15] MEDS: FAMOTIDINE (20 MG) 20 MG TABLET PO SCH (08:09)
[2019-04-15] MEDS: ASPIRIN 81 MG TAB.CHEW PO SCH (08:09)
[2019-04-15] MEDS: OXCARBAZEPINE 150 MG TABLET PO SCH ×3 (08:10→16:58)
[2019-04-15] MEDS: MEMANTINE HCL 5 MG TABLET PO SCH (08:10)
[2019-04-15] MEDS: LEVOTHYROXINE SODIUM 125 MCG TABLET PO SCH (08:10)
[2019-04-15] MEDS: DOCUSATE SODIUM 100 MG CAPSULE PO SCH ×2 (08:10→16:58)
[2019-04-15] MEDS: AMLODIPINE BESYLATE 5 MG TABLET PO SCH (08:10)
[2019-04-15 14:00] VITALS: BP 150/64
[2019-04-15] MEDS: MEROPENEM 1 G in IV NS 0.9% 100 ML IV SCH ×2 (14:08→22:02)
[2019-04-15 16:00] VITALS: BP 150/64
[2019-04-15] MEDS: methylPREDNISolone SOD SUCC 40 MG/ML VIAL IV SCH (16:59)
[2019-04-15] MEDS: IV D5/ 0.9% NACL 1,000 ML IV PRN (17:24)
--- NOTE | 2019-04-15 18:31 | NUR ---
MS RN CLOSING NOTES PT IS LYING ON BED WITH IV FLUIDS RUNNING.RESPIRATION IS EVEN AND NONLABORED.ALL DUE MEDS ARE GIVEN.NO SOB AND ACUTE DISTRESS NOTED.IV LINE IS INTACT.ENDORSING TO FUNERAL PRE NEED CONSULTANT RN FOR STEPHANIE.
--- NOTE | 2019-04-15 19:34 | NUR ---
MS RN NOTE PATIENT IN BED A/O X 1. NO S/S OF DISTRESS. PATIENT ON D5 NS RUNNING 75 ML AN HOUR IN 20 G MINA PATENT AND INTACT. PATIENT. PATIENT REMAINS NPO AFTER SWALLOW EVAL, PATIENT FAILED SWALLOW TEST. PATIENT BREATHING EVEN AND UNLABORED, NO S/S OF HYPOGLYCEMIA, FAMILY MADE AWARE OF RESULTS. SAFETY PRECAUTIONS IN PLACE RN WILL CONTINUE TO MONITOR.
[2019-04-15 20:00] VITALS: BP 152/82
[2019-04-15] MEDS: ENOXAPARIN SODIUM 40 MG/0.4 ML DISP.SYRIN SQ SCH (22:02)
[2019-04-15] MEDS: LISINOPRIL (5MG) 5 MG TABLET PO SCH (22:03)
[2019-04-15] MEDS: DONEPEZIL 5 MG TABLET PO SCH (22:03)
[2019-04-16] VITALS: BP 152/75
[2019-04-16] MEDS: VANCOMYCIN 1 GM in IV D5W 250 ML IV SCH (01:07)
[2019-04-16] MEDS: IPRATROPIUM NEB FS 0.5 MG/2.5 ML AMPUL.NEB IH SCH ×4 (01:09→19:28)
[2019-04-16] MEDS: ALBUTEROL FS 2.5 MG/0.5 ML VIAL.NEB NEB SCH ×4 (01:09→19:28)
[2019-04-16] MEDS: MEROPENEM 1 G in IV NS 0.9% 100 ML IV SCH (05:17)
--- NOTE | 2019-04-16 07:10 | NUR ---
MS RN OPENING NOTES RECEIVED PT LYING ON BED.ALERT/ORIENTED X1 WITH CONFUSED.ON ROOM AIR,NO SOB AND ACUTE DISTRESS NOTED.RESPIRATION IS EVEN AND NONLABORED.IV LINE IS ON LEFT FA G20 WITH D5NS @75CCC/HR IS RUNNING,SITE IS CLEAN,DRY AND INTACT.NO INFILTRATION NOTED.BED IS IN LOW POSITION AND LOCKED,CALL LIGHT IS WITHIN REACH.WILL CONTINUE TO MONITOR THE PT CLOSELY.
[2019-04-16 07:12] LABS: CALCIUM, SERUM 7.8 mg/dL (8.5-10.1); CARBON DIOXIDE 27 mmol/L (21-32); CHLORIDE 107 mmol/L (98-107); GLUCOSE 107 mg/dL (74-106); POTASSIUM 3.7 mmol/L (3.5-5.1); SODIUM SERUM 140 mmol/L (136-145); UREA NITROGEN, BLOOD 15 mg/dL (7-18)
[2019-04-16 08:00] VITALS: BP 131/78
[2019-04-16] MEDS: DOCUSATE SODIUM 100 MG CAPSULE PO SCH ×2 (08:30→16:27)
[2019-04-16] MEDS: OXCARBAZEPINE 150 MG TABLET PO SCH ×3 (08:30→16:27)
[2019-04-16] MEDS: AMLODIPINE BESYLATE 5 MG TABLET PO SCH (08:31)
[2019-04-16] MEDS: methylPREDNISolone SOD SUCC 40 MG/ML VIAL IV SCH ×2 (08:31→16:27)
[2019-04-16] MEDS: FAMOTIDINE (20 MG) 20 MG TABLET PO SCH (08:31)
[2019-04-16] MEDS: MEMANTINE HCL 5 MG TABLET PO SCH (08:31)
[2019-04-16] MEDS: ASPIRIN 81 MG TAB.CHEW PO SCH (08:31)
[2019-04-16] MEDS: LEVOTHYROXINE SODIUM 125 MCG TABLET PO SCH (08:31)
[2019-04-16] MEDS: IV D5/ 0.9% NACL 1,000 ML IV PRN (10:46)
[2019-04-16 16:00] VITALS: BP 138/82
--- NOTE | 2019-04-16 18:42 | NUR ---
MS RN CLOSING NOTES PT IS LYING ON BED WITH O2 2L VIA NC CONTINUOUSLY,TOLERATING WELL.NO SOB AND ACUTE DISTRESS NOTED.IV LINE IS IN PLACE WITH IV FLUIDS IS RUNNING,SITE IS C/D/I.ALL THE DUE MEDS ARE GIVEN.ON NPO.RESPIRATION IS EVEN AND NONLABORED.ENDORSING TO SEDIMENT REMEDIATION CONSULTANT RN FOR STEPHANIE .
--- NOTE | 2019-04-16 19:45 | NUR ---
MS RN OPENING NOTES, RECEIVED PT LYING ON BED, ALERT/ORIENTED X1 WITH TO SELF, CONFUSED STATING PHRASES THAT DO NOT MAKE SENSE, NC 2 L CONTINUOUSLY WITH OPTIMAL O2 SAT LEVEL, NO SOB AND ACUTE DISTRESS NOTED, BUT SOUNDS CONGESTED, IV SITE RIGHT FA G18 D5NS @75CCC/HR INFUSING WELL, NO INFILTRATION NOTED, BED IS LOCKED AND LOW POSITION, CALL LIGHT WITHIN REACH, WILL CONTINUE TO MONITOR CLOSELY.
[2019-04-16 20:00] VITALS: BP 158/84
--- NOTE | 2019-04-16 20:35 | NUR ---
RN MS NOTES, CALLED MARIO PELAYO SALES REPRESENTATIVE [employer] AND INFORMED THAT PATIENT SOUNDS CONGESTED, AND PATIENT HAS A H/X CHF AND I CONCERNED FOR FLUID OVERLOAD, PATIENT ON IVF 75/ML/HR DUE TO PATIENT NPO SECONDARY FAILED SWALLOW EVAL X2, AND PIERCE REPLIED WITH NO NEW ORDERS BUT CONTINUE IVF, AND CONTINUE TO MONITOR PATIENT CLOSELY.
[2019-04-16] MEDS: DONEPEZIL 5 MG TABLET PO SCH (21:30)
[2019-04-16] MEDS: LISINOPRIL (5MG) 5 MG TABLET PO SCH (21:30)
[2019-04-16] MEDS: ENOXAPARIN SODIUM 40 MG/0.4 ML DISP.SYRIN SQ SCH (21:34)
[2019-04-17] MEDS: IPRATROPIUM NEB FS 0.5 MG/2.5 ML AMPUL.NEB IH SCH ×4 (01:30→14:04)
[2019-04-17] MEDS: ALBUTEROL FS 2.5 MG/0.5 ML VIAL.NEB NEB SCH ×3 (01:46→14:04)
--- NOTE | 2019-04-17 03:50 | NUR ---
RN NOTES, CALLED DR BENTLEY EXCHANGE TO INFORM ABOUT PATIENT BREATHING AND THE CONCERN FOR FLUID OVERLOAD, AND ABHI FOOTWEAR SALES COORDINATOR WILL CALL BACK, AWAITING FOR CALL, PATIENT WITH STABLE VS AND O2 SAT 99% AT 2LPM VIA NC, WILL CONTINUE TO MONITOR CLOSELY.
[2019-04-17 04:00] VITALS: BP 158/80
--- NOTE | 2019-04-17 05:50 | NUR ---
RN NOTES, CALLED [employer] AGAIN AND ELECTRICAL MACHINE BUILDER WILL INFORM ABHI FINISHING RANGE SUPERVISOR TO CALLBACK, AWAITING FOR CALL.
--- NOTE | 2019-04-17 06:54 | NUR ---
RN NOTES, NO SIGNIFICANT CHANGE IN CONDITION THROUGHOUT THE NIGHT, BUT CONCERN FOR FLUID OVERLOAD, WILL ENDORSE CONTINUITY OF CARE TO ONCOMING NURSE, AWAITING FOR ABHI PRECISION AGRICULTURE SPECIALIST TO CALL BACK FOR FURTHER ORDERS.
[2019-04-17] MEDS: LEVOTHYROXINE SODIUM 125 MCG TABLET PO SCH (07:30)
[2019-04-17] MEDS: FAMOTIDINE (20 MG) 20 MG TABLET PO SCH (07:30)
[2019-04-17 08:00] VITALS: BP 153/91
[2019-04-17 08:00] LABS: CALCIUM, SERUM 7.9 mg/dL (8.5-10.1); CARBON DIOXIDE 28 mmol/L (21-32); CHLORIDE 106 mmol/L (98-107); CREATININE 0.8 mg/dL (0.6-1.3); GLUCOSE 96 mg/dL (74-106); POTASSIUM 3.6 mmol/L (3.5-5.1); SODIUM SERUM 141 mmol/L (136-145); UREA NITROGEN, BLOOD 13 mg/dL (7-18)
[2019-04-17] MEDS: MEMANTINE HCL 5 MG TABLET PO SCH (09:58)
[2019-04-17] MEDS: ASPIRIN 81 MG TAB.CHEW PO SCH (09:58)
[2019-04-17] MEDS: OXCARBAZEPINE 150 MG TABLET PO SCH ×2 (09:58→14:01)
[2019-04-17] MEDS: DOCUSATE SODIUM 100 MG CAPSULE PO SCH (09:58)
[2019-04-17 09:59] VITALS: BP 153/91
[2019-04-17] MEDS: AMLODIPINE BESYLATE 5 MG TABLET PO SCH (09:59)
[2019-04-17] MEDS: methylPREDNISolone SOD SUCC 40 MG/ML VIAL IV SCH (10:11)
[2019-04-17] MEDS ORDERED: ENSURE ENLIVE CHOC 237 ML CAN PO SCH (12:00)
== END 2019-04-17 14:30 | DRG 280 ==
LOC: ER 08:07 → TELE1 09:06 → MEDSG1 04-13 21:51
PROVIDERS: ADMIT Internal Medicine; ATTEND Internal Medicine
DX: I21.4 Non-ST elevation (NSTEMI) myocardial infarction (principal); G92 Toxic encephalopathy; J96.92 Respiratory failure, unspecified with hypercapnia; N39.0 Urinary tract infection, site not specified; E87.2 Acidosis; N17.9 Acute kidney failure, unspecified; J98.11 Atelectasis; K21.9 Gastro-esophageal reflux disease without esophagitis; I50.9 Heart failure, unspecified; I11.0 Hypertensive heart disease with heart failure; G30.9 Alzheimer's disease, unspecified; F02.80 Dementia in other diseases classified elsewhere, unspecified severity, without behavioral disturbance, psychotic disturbance, mood disturbance, and anxiety; I70.0 Atherosclerosis of aorta; I25.10 Atherosclerotic heart disease of native coronary artery without angina pectoris; E78.5 Hyperlipidemia, unspecified; M19.90 Unspecified osteoarthritis, unspecified site; Z88.0 Allergy status to penicillin; Z88.8 Allergy status to other drugs, medicaments and biological substances; Z79.51 Long term (current) use of inhaled steroids; Z79.82 Long term (current) use of aspirin; Z79.899 Other long term (current) drug therapy; Z95.0 Presence of cardiac pacemaker; Z86.73 Personal history of transient ischemic attack (TIA), and cerebral infarction without residual deficits; Z79.890 Hormone replacement therapy; J98.01 Acute bronchospasm; F09 Unspecified mental disorder due to known physiological condition; E03.9 Hypothyroidism, unspecified; D64.9 Anemia, unspecified
CPT/HCPCS: 36415; 36600; 71045-TC; 80048-TC; 80061-TC; 80076-TC; 80202-TC; 81000-TC; 82140-TC; 82803-TC; 83605-TC; 83735-TC; 84100-TC; 84484-TC; 85025-TC; 85730-TC; 87040-TC; 87081-TC; 87086-TC; 87186-TC; 92526; 92611-TC; 94799-TC; 97112-TC; 97530-TC; A4216; G0378; J1650; J1956; J2185; J2920; J2930; J3370; J3490; J7030; J7040; J7042; J7060

== ENCOUNTER → 2019-05-15 | Outpatient (CLI) | payer MEDICARE, MEDICAID ==
[~2019-05-15] MED LIST changes: -CYAN100T3 PO; +FAMO20TA8 PO; -FERR325T28 PO; +NA P133E RC; -PANT20TA2 PO; +PRAV40TA PO; -SIMV20TA2 PO
== END | disposition home or self-care (01) ==
LOC: CT 09:25
PROVIDERS: ATTEND Internal Medicine
DX: K80.20 Calculus of gallbladder without cholecystitis without obstruction (principal); K62.89 Other specified diseases of anus and rectum; I70.0 Atherosclerosis of aorta; J98.11 Atelectasis; I51.7 Cardiomegaly; N20.0 Calculus of kidney; N32.9 Bladder disorder, unspecified

== ENCOUNTER 2020-06-13 14:04 | Inpatient (IN) | payer MEDICARE, OTHER ==
[2020-06-13] VITALS (19 sets, daily range): BP systolic 85–129; BP diastolic 40–104
[~2020-06-13] VITALS: Ht 165.1 cm; Wt 55.3 kg
[~2020-06-13 14:04] MED LIST changes: -MEMA5TAB15 PO; +MEMA5TAB42 PO
--- NOTE | 2020-06-13 14:10 | NUR ---
CHACHO FROM [facility] FOR HYPOTENSION AND O2 DESATURATION, TO ER BED 8, HOOKED TO CERTIFIED PROFESSIONAL MIDWIFE AND POX, PATIENT ON PACED RHYTHM, CHANGED TO HOSP GOWN, SKIN COOL TO TOUCH, PLACED ON SIMPLE MASK WOTH O2 OF 8LPM, O2 SAT AFTERWARDS AT 93%. NOTED W RAC 20G IV PERIPEHERAL LINE, PATENT AND FLASHING. DR WHITAKER AT BEDSIDE
[2020-06-13] MEDS ORDERED: VANCOMYCIN HCL 1 GM in IV D5W 260 ML IV ONE (14:30)
[2020-06-13] MEDS ORDERED: CEFEPIME 1 GM in IV D5W 50 ML IV ONE (14:30)
[2020-06-13] MEDS ORDERED: IV NS 0.9% 500 ML BAG IV ONE ×2 (14:30→16:00)
[2020-06-13] MEDS ORDERED: OMEP20TA5 PO (14:49)
[2020-06-13] MEDS ORDERED: ASCO500C16 PO (14:49)
[2020-06-13] MEDS ORDERED: NUTR1PAC14 PO (14:49)
[2020-06-13] MEDS ORDERED: BISA10SU11 RC (14:49)
[2020-06-13] MEDS ORDERED: MULT-439 PO (14:49)
[2020-06-13] MEDS ORDERED: ATOR10TA PO (14:49)
--- NOTE | 2020-06-13 15:06 | NUR ---
RT AT BEDSIDE FOR SUCTIONING
[2020-06-13 15:11] LABS: BASOPHILS % (AUTO) 0.1 % (0.0-2.0); HEMATOCRIT 35 % (39-51); HEMOGLOBIN 10.4 g/dL (13.5-17.5); LYMPHOCYTES # (AUTO) 2.1 /CMM (0.8-4.8); LYMPHOCYTES % (AUTO) 10.4 % (20.0-44.0); MEAN CORPUSCULAR HGB CONC 30 g/dl (31.0-36.0); MEAN CORPUSCULAR VOLUME 94 fL (80-96); NEUTROPHILS # (AUTO) 17.3 /CMM (1.8-8.9); NEUTROPHILS % (AUTO) 84.5 % (43.0-81.0); PLATELET COUNT (AUTO) 497 /CMM (150-450); RED BLOOD CELL COUNT(AUTO) 3.69 MIL/uL (4.5-6.0); WHITE BLOOD COUNT (AUTO) 20.5 K/uL (4.3-11.0)
[2020-06-13 15:29] LABS: CALCIUM, SERUM 9.6 mg/dL (8.5-10.1); CARBON DIOXIDE 18 mmol/L (21-32); CHLORIDE 111 mmol/L (98-107); GLUCOSE 268 mg/dL (74-106); POTASSIUM 4.1 mmol/L (3.5-5.1); SODIUM SERUM 148 mmol/L (136-145); UREA NITROGEN, BLOOD 79 mg/dL (7-18)
[2020-06-13 15:40] LABS: ALANINE AMINOTRANSFERASE 59 U/L (12-78); ALBUMIN 3.2 g/dL (3.4-5.0); ALKALINE PHOSPHATASE 90 U/L (46-116); ASPARTATE AMINOTRANSFERASE 40 U/L (15-37); B-TYPE NATRIURETIC PEPTIDE 4079 PG/ML (0-125); BILIRUBIN,DIRECT 0.1 mg/dL (0.0-0.2); BILIRUBIN,TOTAL 0.3 mg/dL (0.2-1.0); TOTAL PROTEIN, SERUM 8.9 g/dL (6.4-8.2)
--- NOTE | 2020-06-13 16:54 | NUR ---
MSD MADE AWARE OF PATIENT'S LOW BP.
--- NOTE | 2020-06-13 16:59 | NUR ---
GREGORIO DAUGHTER LEFT CONTACT # [phone]
[2020-06-13] MEDS ORDERED: NOREPINEPHRINE 8 MG in IV NS 0.9% 250 ML IV ONE (17:00)
--- NOTE | 2020-06-13 17:03 | NUR ---
ICU 251
[2020-06-13] MEDS ORDERED: ZOLPIDEM TARTRATE 5 MG TABLET PO PRN (17:30)
[2020-06-13] MEDS ORDERED: MAG HYDROX/AL HYDROX/SIMETH 30 ML UDC PO PRN (17:30)
[2020-06-13] MEDS ORDERED: ACETAMINOPHEN 325 MG TABLET PO PRN (17:30)
[2020-06-13] MEDS ORDERED: Z GUARD REMEDY 2 OZ OINT TP PRN (17:30)
[2020-06-13] MEDS ORDERED: HYDROCODONE/APAP 5/325MG TABLET PO PRN (17:30)
[2020-06-13] MEDS ORDERED: MAGNESIUM HYDROXIDE 30 ML UDC PO PRN (17:30)
[2020-06-13] MEDS ORDERED: ONDANSETRON HCL/PF 4 MG/2 ML VIAL IVP PRN (17:30)
--- NOTE | 2020-06-13 17:36 | NUR ---
REPORT GIVEN TO APPLE ALEJO OF ICU
--- NOTE | 2020-06-13 17:40 | NUR ---
RN NOTES RECEIVED PT FROM ER IN ROOM 251, PT IS NONVERBAL , RESPONSE TO PAINFUL STIMULI, ALL 4 EXTREMITIES ARE CONTRACTED , PT ON SIMPLE FACE MASK AT 6L , O2 SAT WNL ON TELE V-PACING HR IN 110'S , LINDA DRINING TO GRAVITY WITH YELLOW CLEAR URINE, PT RECEIVED FROM ER ON LEVO AT .8MCG/ KG/MIN , R UPPER ARM IV SITE G 20 CLEAN, DRY AND INTACT, AUTOMOBILE PARTS ASSEMBLER NOTIFED REGARDING MIDLINE ORDER , PT NOTED WITH MULTIPLIES WOUND ON LETI LOWER EXTRIMITES , WOUND CONSULT ORDERED, PICTURE TAKEN AND PLACED ON THE CHART . SR UP X3, CALL LIGHT WITHIN EASY REACH, BED LOCKED AND IN LOWEST POSITION, CONTINUE TO MONITOR.
--- NOTE | 2020-06-13 18:00 | NUR ---
RN NOTES WILL ENDORSE TO TAVERN CAR ATTENDANT NURSE FOR CONTINUITY OF CARE.
[2020-06-13 18:18] LABS: APPEARANCE,URINE Clear (CLEAR); BILIRUBIN,URINE Negative (NEGATIVE); BLOOD, URINE Negative Ery/uL (NEGATIVE); COLOR,URINE Yellow (YELLOW); KETONES,URINE Negative (NEGATIVE); LEUKOCYTE ESTERASE ,URINE Negative (NEGATIVE); NITRITE, URINE Negative (NEGATIVE); PROTEIN,URINE Negative (NEGATIVE); UGLUCOSE Negative (NEGATIVE); UROBILINOGEN,URINE 0.2 EU/dL (0.2)
[2020-06-13] MEDS: IV NS 0.9% 1,000 ML IV PRN (18:18)
[2020-06-13 18:56] LABS: CREATININE, URINE 152.7 MG/DL (30.0-125.0); URINE TOTAL PROTEIN 40.2 mg/dL (0-11.9)
--- NOTE | 2020-06-13 19:05 | NUR ---
RN OPENING NOTES RECEIVED PT ON BED SLEEPING, RESPONDING TO PAIN STIMULI ON 6L O2 VIA MASK SPO2 100% NO SIGN OF ANY DISTRESS, WITH ONGOING LEVOPHED 0.8MCG/KG/MIN AND NS 100ML/ HR VIA R AC INFUSING WELL NO SIGN OF INFILTRATION NOTED, ON BEDSIDE MONITOR WITH READING SINUS TACHY 110'S V-PACING 100%, DROPLET ISOALTION MAINTAINED FOR R/O COVID, SAFETY MEASURE OBSERVED BED ON LOWEST POSITION AND LOCKED SIDE RAILS UP X3 CALL LIGHT WITHIN REACH WILL CONT TO MONITOR
[2020-06-13] MEDS ORDERED: CEFEPIME 2 GM in IV D5W 100 ML IV SCH (20:00)
[2020-06-13] MEDS ORDERED: NOREPINEPHRINE 4 MG/4 ML AMPUL IV ONE ×3 (20:03→23:48)
[2020-06-13] MEDS: NOREPINEPHRINE 8 MG in IV NS 0.9% 242 ML IV PRN ×2 (20:11→23:01)
[2020-06-13] MEDS ORDERED: DONEPEZIL 5 MG TABLET PO SCH (22:00)
[2020-06-13] MEDS ORDERED: ATORVASTATIN 10 MG TABLET PO SCH (22:00)
--- NOTE | 2020-06-13 22:16 | NUR ---
RN NOTES ORAL MEDICATION NOT GIVEN PT IS VERY LETHARGIC AND UNABLE TO PASS THE NURSING SWALLOW TEST CHARGE NURSE AWARE
[2020-06-14] VITALS (50 sets, daily range): BP systolic 0–137; BP diastolic 0–97
[2020-06-14] MEDS ORDERED: NOREPINEPHRINE 4 MG/4 ML AMPUL IV ONE (02:25)
[2020-06-14] MEDS: NOREPINEPHRINE 8 MG in IV NS 0.9% 242 ML IV PRN ×3 (03:04→10:02)
[2020-06-14] MEDS: IV NS 0.9% 1,000 ML IV PRN (03:29)
[2020-06-14 04:43] LABS: BASOPHILS % (AUTO) 0.1 % (0.0-2.0); HEMATOCRIT 36 % (39-51); HEMOGLOBIN 10.7 g/dL (13.5-17.5); LYMPHOCYTES # (AUTO) 0.6 /CMM (0.8-4.8); LYMPHOCYTES % (AUTO) 3.6 % (20.0-44.0); MEAN CORPUSCULAR HGB CONC 30 g/dl (31.0-36.0); MEAN CORPUSCULAR VOLUME 93 fL (80-96); MONOCYTES # (AUTO) 0.5 /CMM (0.1-1.30); MONOCYTES % (AUTO) 3.1 % (2.0-12.0); NEUTROPHILS # (AUTO) 15.8 /CMM (1.8-8.9); NEUTROPHILS % (AUTO) 93.2 % (43.0-81.0); PLATELET COUNT (AUTO) 399 /CMM (150-450); RED BLOOD CELL COUNT(AUTO) 3.85 MIL/uL (4.5-6.0)
[2020-06-14 05:27] LABS: CHOLESTEROL 125 mg/dL (<200); CREATINE KINASE, TOTAL 839 U/L (39-308); HDL CHOLESTEROL 44 mg/dL (40-60); LDL 72 mg/dL (0-99); TRIGLYCERIDES 73 mg/dL (30-150)
[2020-06-14 06:41] LABS: ALANINE AMINOTRANSFERASE 61 U/L (12-78); ALBUMIN 2.5 g/dL (3.4-5.0); ALKALINE PHOSPHATASE 72 U/L (46-116); ASPARTATE AMINOTRANSFERASE 75 U/L (15-37); BILIRUBIN,TOTAL 0.4 mg/dL (0.2-1.0); CALCIUM, SERUM 8.3 mg/dL (8.5-10.1); CARBON DIOXIDE 14 mmol/L (21-32); CHLORIDE 114 mmol/L (98-107); CREATININE 3.5 mg/dL (0.6-1.3); GLUCOSE 108 mg/dL (74-106); MAGNESIUM 2.6 mg/dL (1.8-2.4); PHOSPHORUS 5.6 mg/dL (2.5-4.9); POTASSIUM 5.4 mmol/L (3.5-5.1); SODIUM SERUM 150 mmol/L (136-145); TOTAL PROTEIN, SERUM 7.6 g/dL (6.4-8.2)
[2020-06-14 06:42] LABS: UREA NITROGEN, BLOOD 93 mg/dL (7-18)
--- NOTE | 2020-06-14 06:44 | NUR ---
RN NOTES REPORTED TO DR. MALIK ABOUT THE PT TROPONIN OF 0.493 WITH NO NEW ORDER
[2020-06-14] MEDS ORDERED: LEVOTHYROXINE SODIUM 100 MCG TABLET PO SCH (07:30)
[2020-06-14] MEDS ORDERED: PANTOPRAZOLE 40 MG TABLET.DR PO SCH (07:30)
[2020-06-14] MEDS: OXCARBAZEPINE 150 MG TABLET PO SCH ×3 (08:12→16:16)
[2020-06-14] MEDS ORDERED: ASPIRIN 81 MG TAB.CHEW PO SCH (09:00)
[2020-06-14] MEDS ORDERED: IV 1/2NS 1000 ML 1,000 ML IV PRN (09:30)
[2020-06-14] MEDS: HYDROCORTISONE SOD SUCCINATE 100 MG/2 ML VIAL IV SCH ×2 (10:43→13:32)
[2020-06-14] MEDS ORDERED: NOREPINEPHRINE 32 MG in IV NS 0.9% 218 ML IV PRN ×2 (11:00→13:00)
[2020-06-14] MEDS ORDERED: HEPARIN SODIUM, PORCINE 5000 UNITS/1 ML VIAL SQ SCH (11:00)
[2020-06-14] MEDS ORDERED: IV NS 0.9% 1,000 ML IV ONE (12:30)
--- NOTE | 2020-06-14 13:01 | NUR ---
AT 1200 FOLLOWING CLEANING PT UP FROM A BM PT'S BLOOD PRESSURE DROPPED TO 67/41, RESPIRATIONS WERE SHALLOW, UNABLE TO OBTAIN O2 SAT. BLOOD PRESSURE CUFF AND O2 SAT PROB WERE BOTH CHANGED. DR. ZENDEJAS IN UNIT AND NOTIFIED, PT WAS ALREADY MAXED ON LEVOPHED AT 1MCG/KG/MIN. 1 LITER NS BOLUS ORDERED WITH INSTRUCTIONS THAT AFTER THAT LITER BOLUS IF BP NOT >90 START JIMMY-SYNEPHRINE GTT. PT'S DAUGHTER GREGORIO NOTIFIED OF PT'S CURRENT CONDITION, PT IS A DNR/DNI. GREGORIO STATED UNDERSTANDING AND REQUESTED IF SHE AND A FEW FAMILY MEMBERS CAN COME TO SEE HIM IN CASE HE PASSES AWAY. CHARGE NURSE CARLOS OBTAINED ADMINISTRATION APPROVAL FOR THEM TO COME SEE PATIENT 1 AT A TIME, FOR 5 MINUTES EACH. GREGORIO NOTIFIED, SHE STATED IT WILL TAKE HER ABOUT AN HOUR TO AN HOUR AND A HALF TO GET HERE. SECURITY NOTIFIED.
[2020-06-14 13:05] LABS: ABG BASE EXCESS -23.6 mmol/L; ABG OXYGEN SATURATION 99.2 % (92.0-98.5); ABG PCO2 40.7 mmHg (35.0-45.0); ABG PH 6.908 (7.350-7.450); ABG PO2 206.9 mmHg (75.0-100.0); AaDO2 103.8 mmHg; COHb 0.6 % (0.5-1.5); MetHb 0.3 % (0.0-1.5); O2Hb 98.3 % (94.0-97.0); SITE, ABG Left Radial; VENT MODE, BG 6L SIMPLE MASK
[2020-06-14] MEDS ORDERED: SODIUM BICARBONATE SYR 50 MEQ/50 ML DISP.SYRIN IV ONE (13:30)
[2020-06-14] MEDS ORDERED: Sodium Bicarbonate 150 MEQ in IV D5W 1,000 ML IV PRN (13:30)
[2020-06-14] MEDS ORDERED: PHENYLEPHRINE 100 MG in IV NS 0.9% 240 ML IV PRN (14:30)
--- NOTE | 2020-06-14 18:40 | NUR ---
PATIENT MAX OUT ON 2 PRESSORS. NO BP. ASYSTOLE ON MONITOR. NO PALPABLE PULSES. NO HEART TONE. NO SPONTANEOUS BREATHING. PUPILS FIXED AND DILATED. PATIENT DNR/DNI PRONOUNCED @ 1840.
--- NOTE | 2020-06-14 19:00 | NUR ---
[facility] WAS NOTIFIED OF , CASE NUMBER ON FORM, NO FURTHER ACTION FROM [facility]. PT'S DAUGHTER GREGORIO WAS NOTIFIED AT 1854. GREGORIO AND HER CAME AND VISITED PATIENT THIS AFTERNOON. GREGORIO STATED SHE HAS PAPERWORK FOR PATIENTS MORTUARY, [place]ICH [place], PER GREGORIO. GREGORIO WILL CALL THEM AND CALL US BACK WITH INFORMATION. CHARGE NURSE CARLOS NOTIFIED MD'S, NURSING MOWING MACHINE OPERATOR. ON COMING SHIFT NOTIFIED.
--- NOTE | 2020-06-14 21:00 | NUR ---
RN NOTES [facility] CALLED STATED THAT THEY WILL SCORER SINGLE THE BODY AROUND 7AM -12N, POST MORTEM CARE DONE. [address] ON [facility] [place].
[2020-06-17 13:06] LABS: *SPE A/G RATIO 0.6 (0.7-1.7); *SPE ALBUMIN 2.3 g/dL (2.9-4.4); *SPE ALPHA-1-GLOBULIN 0.3 g/dL (0.0-0.4); *SPE ALPHA-2-GLOBULIN 1.2 g/dL (0.4-1.0); *SPE BETA GLOBULIN 0.8 g/dL (0.7-1.3); *SPE GLOBULIN, TOTAL 4.1 g/dL (2.2-3.9); *SPE M-SPIKE 0.3 g/dL (Not Observed); *SPEGAMMA GLOBULIN 1.7 g/dL (0.4-1.8)
== END 2020-06-14 18:40 | disposition expired | DRG 871 ==
LOC: ER 14:08 → ICU 17:09
PROVIDERS: ADMIT Student in an Organized Health Care Education/Training Program; ATTEND Internal Medicine
PROC: 05H933Z Insertion of Infusion Device into Right Brachial Vein, Percutaneous Approach (ICD-10-PCS; principal; 2020-06-14)
DX: A41.9 Sepsis, unspecified organism (principal); G93.41 Metabolic encephalopathy; I21.A1 Myocardial infarction type 2; J96.02 Acute respiratory failure with hypercapnia; J96.01 Acute respiratory failure with hypoxia; N17.0 Acute kidney failure with tubular necrosis; J69.0 Pneumonitis due to inhalation of food and vomit; E43 Unspecified severe protein-calorie malnutrition; E87.2 Acidosis; E87.0 Hyperosmolality and hypernatremia; Y95 Nosocomial condition; G30.9 Alzheimer's disease, unspecified; Z66 Do not resuscitate; F02.80 Dementia in other diseases classified elsewhere, unspecified severity, without behavioral disturbance, psychotic disturbance, mood disturbance, and anxiety; M19.90 Unspecified osteoarthritis, unspecified site; E03.9 Hypothyroidism, unspecified; D64.9 Anemia, unspecified; Z86.73 Personal history of transient ischemic attack (TIA), and cerebral infarction without residual deficits; Z88.0 Allergy status to penicillin; Z88.8 Allergy status to other drugs, medicaments and biological substances; Z79.82 Long term (current) use of aspirin; Z79.899 Other long term (current) drug therapy; Z79.51 Long term (current) use of inhaled steroids; R13.10 Dysphagia, unspecified; Z79.890 Hormone replacement therapy; Z95.0 Presence of cardiac pacemaker; K21.9 Gastro-esophageal reflux disease without esophagitis; I25.10 Atherosclerotic heart disease of native coronary artery without angina pectoris; Z86.59 Personal history of other mental and behavioral disorders; I70.0 Atherosclerosis of aorta; K56.41 Fecal impaction; I50.9 Heart failure, unspecified; I11.0 Hypertensive heart disease with heart failure; E78.5 Hyperlipidemia, unspecified; E83.39 Other disorders of phosphorus metabolism; E83.42 Hypomagnesemia; F09 Unspecified mental disorder due to known physiological condition; E86.0 Dehydration; J44.9 Chronic obstructive pulmonary disease, unspecified; K80.20 Calculus of gallbladder without cholecystitis without obstruction; E86.1 Hypovolemia; N28.1 Cyst of kidney, acquired
CPT/HCPCS: 36415; 36600; 71045-TC; 80048-TC; 80053-TC; 80061-TC; 80076-TC; 81000-TC; 82533; 82550-TC; 82553; 82570-TC; 83605-TC; 83735-TC; 83880; 83970; 84100-TC; 84155; 84155-TC; 84165; 84300-TC; 84484-TC; 85025-TC; 85730-TC; 87040-TC; 87086-TC; A6253; A6403; G0378; J0692; J1644; J1720; J2370; J3490; J7030; J7040; J7050; J7060; J7070; U0003-CS